=== PATIENT | male | born 1950 | race Caucasian/White ===

== ENCOUNTER → 2021-01-03 10:30 | Outpatient (CLI) | payer MEDICARE, SELFPAY ==
--- NOTE | ~2021-01-03 | CT_ITS ---
EXAMINATION: CT pelvis wo con DATE: 01/03/2021 10:53 INDICATION: Other neuromuscular dysfunction of the bladder for bladder stimulator preimplantation angelia luation TECHNIQUE: High resolution computed tomography (CT) of the pelvis was performed without intravenous c ontrast. Additional sagittal and coronal reconstructions were performed. Automated exposure control a nd iterative reconstruction technique were employed. The dose-length product was 652.85 mGy-cm. COMPARISON: None FINDINGS: 5 mm retrolisthesis L3 on L4 and 4 mm retrolisthesis L4 on L5. Bilateral vertical jenniffer and pedicle scr ew fixation for posterior spinal fusion at L3-L4. Severe disc height loss at L5-S1 with vacuum phenom elizabeth and Modic type III sclerotic endplate changes. Mild to moderate disc height loss at L3-L4 and L4- L5. Severe bilateral facet osteoarthritis at L4-L5 and L5-S1. Intrathecal pain pump in the subcutaneo us fat at the left anterior pelvis with catheter extending into the central canal at the level of L4- L5 with distal tip in the central canal at the level of L3. Mild bilateral hip osteoarthritis. Visualized caudal tips of the right hepatic lobe and bilateral kidneys are normal. Visualized portion of the bowels including the appendix are normal. Bladder is normal. Brachytherapy seeds at the prost ate. No free fluid in the pelvis. Bilateral small fat-containing inguinal hernias. IMPRESSION: 1. Severe lower lumbar spondylosis with L3-L4 posterior spinal fusion and with lower lumbar intrathec al pain pump. Reviewed, dictated and finalized at location A. IMPRESSION: 1. Severe lower lumbar spondylosis with L3-L4 posterior spinal fusion and with lower lumbar intrathecal pain pump.
== END ==
PROVIDERS: Visit Provider Anesthesiology
DX: N31.8 Other neuromuscular dysfunction of bladder (principal); M47.816 Spondylosis without myelopathy or radiculopathy, lumbar region; Z98.1 Arthrodesis status; Z97.8 Presence of other specified devices
CPT/HCPCS: 72192

== ENCOUNTER 2021-08-02 15:21 | Observation (INO) | payer MEDICARE, SELFPAY ==
[2021-08-02] VITALS (31 sets, daily range): BP systolic 119–152; BP diastolic 56–78; PULSE 55–75; RESP 0–21; TEMP 36.4–36.5; O2SAT 92–98; BMI 32.4
--- NOTE | ~2021-08-02 | US_ITS ---
EXAMINATION:US venous doppler LE BI INDICATION:Leg edema TECHNIQUE: Multiple grayscale, color flow and Doppler images of the right and left lower extremity de ep venous systems were obtained and reviewed. COMPARISON:No prior studies for comparison. FINDINGS: The common femoral, superficial femoral and popliteal veins demonstrate normal respiratory variation, augmentation and compressibility. Color flow is also seen within the posterior tibial, pe roneal, greater saphenous and profunda veins. IMPRESSION: 1: No lower extremity deep venous thrombosis. Reviewed, dictated and finalized at location A.
--- NOTE | ~2021-08-02 | XR_ITS ---
XR chest 2V 08/02/2021 16:08 Indication: Midsternal chest pain and shortness of breath Procedure: 2 view chest Comparison: No prior studies for comparison. Findings: Heart size normal. No focal air space disease, pulmonary edema, pleural effusion or suspect ed pneumothorax. There are multiple sclerotic midthoracic vertebra. There are surgical changes consis tent with posterior fusion of the lower thoracic spine, partially visualized. Impression: 1: No acute cardiopulmonary disease. 2: Multiple sclerotic midthoracic vertebra. Metastatic disease not excluded. Correlate for history o f malignancy. Consider correlation with nuclear bone scan. Reviewed, dictated and finalized at location B. Impression: 1: No acute cardiopulmonary disease. 2: Multiple sclerotic midthoracic vertebra. Metastatic disease not excluded. C orrelate for history of malignancy. Consider correlation with nuclear bone scan .
--- NOTE | 2021-08-02 15:24 | ECG_ITS ---
Measurements Intervals [place] Rate: 65 P: 76 FL: 154 QRS: -36 QRSD: 106 T: 32 QT: 412 QTc: 428 Interpretive Statements SINUS RHYTHM WITH OCCASIONAL SUPRAVENTRICULAR PREMATURE COMPLEXES MARKED LEFT AXIS DEVIATION [QRS AXIS < -30] POOR R-WAVE PROGRESSION COMPARED TO ECG 04/05/2019 14:32:04 NO SIGNIFICANT CHANGES Electronically Signed On 08-02-2021 16:22:04 CDT by Rashi Molina M.D.
[2021-08-02 15:54] LABS: Basophils Percent Auto 0.6 % (0.2-1.2); Eosinophils Absolute Auto 0.2 K/mm3 (0-0.3); Eosinophils Percent Auto 3.2 % (0-4.4); Hematocrit 39.3 % (42.0-52.0); Immature Granulocyte Absolute 0.01 K/mm3 (0.00-0.031); Immature Granulocyte Percent A 0.2 % (0-0.5); Lymphocytes Absolute Auto 1.37 K/mm3 (0.9-3.2); Lymphocytes Percent Auto 22.2 % (18.3-44.2); Mean Corpuscular HGB Conc 33.1 g/dl (32-36); Mean Corpuscular Hemoglobin 31.9 pg (26-34); Mean Corpuscular Volume 96.6 fl (80-100); Mean Platelet Volume 8.7 fl (7.4-10.4); Monocytes Absolute Auto 0.5 K/mm3 (0.1-0.6); Monocytes Percent Auto 8.3 % (2.6-8.5); Neutrophils Percent Auto 65.5 % (45.5-73.1); Platelet Count Result 289 k/mm3 (150-375); Red Blood Count 4.07 M/mm3 (4.6-6.20); Red Cell Distribution Width 13.3 % (11.5-14.5); White Blood Count 6.2 K/mm3 (4.5-10.0)
[2021-08-02 16:03] LABS: Prothrombin Time 13.1 Seconds (11.1-14.7)
[2021-08-02] MEDS: ASPIRIN 81 MG CHEWABLE TABLET 324 MG PO (16:55)
[2021-08-02 17:11] LABS: NT Pro B Type Natriuretic Pept 151 pg/mL (5-100)
--- NOTE | 2021-08-02 17:52 | ED.CHESTPAIN ---
HPI - Chest Pain General Chief Complaint: Chest Pain Stated Complaint: CP, SOB Time Seen by Provider: 08/02/21 16:14 History of Present Illness HPI narrative: Patient is a 71-year-old male who presents ER with chest pain. Intermittent over the last 2 weeks. Increasing in frequency. Last about 5 minutes at a time. Central pressure without radiation. No nausea or vomiting. No sweats. Occurs at rest and with movement. Was referred to cardiology. Scheduled for an outpatient EKG/labs/stress test for later in the week but symptoms are worsening. No history of [place]. Related Data Home Medications Medication Instructions Recorded Confirmed Calcium 600 + D(3) 1 cap PO DAILY 04/05/19 07/30/21 amlodipine-benazepril 1 cap PO DAILY 04/05/19 07/30/21 ascorbic acid (vitamin C) 500 mg PO DAILY 04/05/19 07/30/21 duloxetine 60 mg PO DAILY 04/05/19 07/30/21 multivitamin [Daily Multiple] 1 tablet PO DAILY 04/05/19 07/30/21 vitamin B complex [B 1 tablet PO DAILY 04/05/19 07/30/21 Complex-Vitamin B12] doxepin 25 mg capsule 25 mg PO DAILY 07/30/21 07/30/21 docusate sodium 100 mg PO BID 08/02/21 hydrocodone-acetaminophen 1 - 2 tablet PO Q6H PRN 08/02/21 ketoconazole applic TOPICAL 08/02/21 zolpidem 10 mg PO HS 08/02/21 Allergies Allergy/AdvReac Type Severity Reaction Status Date / Time ciprofloxacin Allergy Mild Swelling Verified 04/07/19 08:15 oxycodone Allergy Mild Unknown Verified 07/30/21 09:00 Review of Systems Review of Systems: All systems reviewed & are unremarkable except as noted in HPI and below Constitutional: Constitutional: Denies chills, Denies fever(s) and Denies weakness ENT: Denies nasal congestion and Denies sore throat Cardiovascular: Cardiovascular: Reports chest pain, Denies rapid heart rate and Denies radiating jaw, neck or arm pain Comments: Orthopnea Respiratory: Respiratory: Denies cough, Denies dyspnea and Denies wheezing Gastrointestinal: Gastrointestinal: Denies abdominal pain, Denies nausea and Denies vomiting Musculoskeletal: Musculoskeletal: Reports muscle cramps (Chronic) [facility] Past Medical History Medical History (Updated 08/02/21 @ 19:19 by Home Ramos MD) Anxiety Depression Hypertension Osteoarthritis Presence of intrathecal baclofen pump Surgical History Surgical History (Updated 04/07/19 @ 07:24 by Luis A Watkins DO) History of lumbar fusion Family History Family History Other Cerebrovascular accident Family history of arthritis Family history of malignant neoplasm Social History Social History Smoking status: Former smoker Smoking end date: 11/13/08 Alcohol intake: current Drinks per week: 14 Substance use: never Gender identity (if verbalized by the patient): Male Spiritual care concerns: No Agree to blood products: Yes Exam Narrative: GENERAL: Uncomfortable-appearing, well-nourished, and in no acute distress. HEAD: Normocephalic, atraumatic. ENT: Mucous membranes moist. CHEST: Clear to auscultation. No respiratory distress. HEART: Regular rate and rhythm. Normal peripheral pulses. ABDOMEN: Soft, nontender, nondistended. EXTREMITIES: Normal range of motion. Nonpitting edema. Chronic lower extremity edema. SKIN: Warm, dry, no rash. NEURO: Alert and oriented x3. PSYCH: Normal mood and affect. Course Course Emergency Course: Admit for observation. Chest pain-free at this time. Vital Signs Vital signs: Vital Signs Temperature 97.6 F 08/02/21 15:27 Pulse Rate 69 08/02/21 15:27 Respiratory Rate 16 08/02/21 15:27 Blood Pressure 136/61 08/02/21 15:27 Pulse Oximetry 96 08/02/21 15:27 Temperature 97.6 F 08/02/21 15:27 Pulse Rate 66 08/02/21 17:46 Respiratory Rate 21 H 08/02/21 17:46 Blood Pressure 152/73 H 08/02/21 17:46 Pulse Oximetry 94 08/02/21 17:46 MDM - Chest Pain Lab Data Result diagrams: 08/02/21 15:45
[2021-08-02 18:01] LABS: Alanine Aminotransferase 25 U/L (4-50); Albumin Level 4.2 g/dL (3.5-5.1); Alkaline Phosphatase 77 U/L (38-126); Anion Gap 3 mmol/L (8-16); Aspartate Amino Transferase 48 U/L (17-59); Bilirubin,Total 0.7 mg/dL (0.2-1.3); Blood Urea Nitrogen 19 mg/dL (9-20); Calcium 8.7 mg/dL (8.4-10.2); Carbon Dioxide 29 mmol/L (22-30); Chloride 103 mmol/L (98-107); Estimated CRCL calculation 100 ml/min; Estimated Glomerular Filt Rate > 60; Glucose 112 mg/dL (65-110); Lipase 57 U/L (23-300); Potassium 3.7 mmol/L (3.4-5.0); Sodium 135 mmol/L (137-145)
[2021-08-02 18:10] LABS: Troponin I < 0.012 ng/mL (0.000-0.034)
--- NOTE | 2021-08-02 18:45 | PM.IMHP ---
H&P: HPI History of Present Illness Date/Time: 08/02/21 18:45 Chief Complaint: Chest discomfort. Narrative: This is a very pleasant 71-year-old male with hypertension and benign prostatic hyperplasia presented to the emergency department today from home for evaluation of chest discomfort. A couple of weeks ago he gradually began to notice intermittent midsternal chest discomfort that he describes as a heaviness or pressure-like sensation. It has been self-limiting, typically lasting 1 minute or less before resolving. There is no specific pattern as to when it occurs and he has experienced it both when in the supine position and sitting. He has an incomplete lumbar spinal cord injury and thus he is not necessarily able to exert himself as he is typically in a motorized scooter though he can stand and walk briefly with a walker. It is thus impossible to say whether not this discomfort is occurring with exertion. Associated symptoms include sweats, shortness of breath, and orthopnea. In fact he has been sleeping in a recliner for a couple of weeks due to the symptoms although he has not really been sleeping much due to the symptoms on thus he has been extremely tired throughout the day. He was referred to Dr. Moyer and saw him as an outpatient on 07/30/2021 and an apnea link, echocardiogram, and Lexiscan Myoview stress test were ordered. He completed the apnea link last night and stented in earlier the day. Echocardiogram and stress test are scheduled for sometimes next week. He has never had similar symptoms in the past and he has no known history of cardiac disease. His appetite has been just fine and he denies nausea and vomiting. He has no issues with GERD or indigestion any is not noticed any significant belching or bloating. There is not a reproducible component to his chest discomfort. Review of Systems Review of Systems: Twelve systems were reviewed. No fever. His allergies have been acting up recently and he has had some postnasal drip. No sick contacts. No significant cough. He denies pleuritic pain and palpitations. He does have intermittent lower extremity edema which seems to have been worse recently though he admits that he has been not getting up as much recently as he has had several surgeries in the last couple of months. As mentioned HPI is not been sleeping well due to his symptoms and he also has issues with urinary urgency at nighttime, sometimes getting up every hour. He recently had photoselective vaporization of prostate and his symptoms seem to have improved somewhat. He denies dysuria. No history of venous thromboembolism. The patient has chronic low back pain stemming from history of vertebral fractures and spinal cord injury. He has a baclofen pump in place which was recently worked on. Except as documented, all other systems were reviewed and are negative. [facility] Past Medical History Medical History (Updated 08/02/21 @ 20:46 by Candice Mcdonnell PA-C) Anxiety Benign prostatic hyperplasia Chronic pain syndrome Depression Hypertension Incomplete lesion of lumbar spinal cord Osteoarthritis Surgical History Surgical History (Updated 08/02/21 @ 20:42 by Candice Mcdonnell PA-C) History of cystoscopy With history of Botox injections and Uro lift. History of lumbar fusion L3-L4. History of reverse total replacement of right shoulder joint Complicated by large hematoma and periprosthetic fracture with subsequent hardware removal and subsequent naomy arthroplasty. Presence of intrathecal baclofen pump Family History Family History Other Cerebrovascular accident Family history of arthritis Family history of malignant neoplasm Social History Social History (Updated 08/02/21 @ 20:42 by Candice Mcdonnell PA-C) Social History: Surrogate decision maker: Belen Church, . Code status: Full code. Smoking status: Former smoker Smoking end date: 11/13/08 [facility]
[2021-08-02 19:13] LABS: Troponin I < 0.012 ng/mL (0.000-0.034)
--- NOTE | 2021-08-02 19:31 | PC.NURSE ---
OMAYRA King FOR BACLOFEN 10MG PO ONCE .
[2021-08-02] MEDS: SODIUM CHLORIDE 0.9% IV 1,000 ML 125 ML IV CONT (20:29)
[2021-08-02] MEDS: BACLOFEN 10 MG TABLET PO (20:30)
[2021-08-02] MEDS: HYDROcodone/acetaminophen (*CRX) 5-325 MG TABLET 1 TAB PO (20:50)
[2021-08-02 21:55] LABS: D Dimer 0.68 ug/mL (<0.48)
[2021-08-02 22:04] LABS: Troponin I < 0.012 ng/mL (0.000-0.034)
--- NOTE | 2021-08-02 22:55 | ADMIMU ---
This patient, Macario Church, was admitted to IMU status, and placed in IMU Room 210-01 at 2054. Patient/family oriented to hospital policies and general routines including ID bracelet, bed and alarms, visiting hours, pain management, procedures, bathroom and other care routines, personal items, smoking policy, room service/diet, and visiting hours. Information on how to activate the Rapid Response Team has been discussed. Patient/Family are encouraged to report perceived risks to care and to ask questions if they do not understand what they are told or what they should do.
[2021-08-02] MEDS: DOXEPIN HCL 25 MG CAPSULE PO (23:36)
[2021-08-03] VITALS (7 sets, daily range): BP systolic 139–160; BP diastolic 86–89; PULSE 55–64; RESP 16–18; TEMP 36.6; O2SAT 96–98
[2021-08-03] MEDS: BACLOFEN 10 MG TABLET PO (01:34)
[2021-08-03 05:09] LABS: Hematocrit 37.5 % (42.0-52.0); Hemoglobin 12.2 g/dL (14.0-18.0); Mean Corpuscular HGB Conc 32.5 g/dl (32-36); Mean Corpuscular Hemoglobin 31.9 pg (26-34); Mean Corpuscular Volume 98.2 fl (80-100); Mean Platelet Volume 8.5 fl (7.4-10.4); Platelet Count Result 234 k/mm3 (150-375); Red Blood Count 3.82 M/mm3 (4.6-6.20); Red Cell Distribution Width 13.2 % (11.5-14.5); White Blood Count 4.3 K/mm3 (4.5-10.0)
[2021-08-03 05:21] LABS: Anion Gap 5 mmol/L (8-16); Blood Urea Nitrogen 16 mg/dL (9-20); Calcium 8.2 mg/dL (8.4-10.2); Carbon Dioxide 29 mmol/L (22-30); Chloride 106 mmol/L (98-107); Estimated CRCL calculation 100 ml/min; Estimated Glomerular Filt Rate > 60; Glucose 89 mg/dL (65-110); Magnesium 2.1 mg/dL (1.6-2.3); Potassium 3.6 mmol/L (3.4-5.0); Sodium 140 mmol/L (137-145)
[2021-08-03] MEDS: lisinopriL 20 MG TABLET PO (10:12)
[2021-08-03] MEDS: ASCORBIC ACID 500 MG TABLET PO (10:14)
[2021-08-03] MEDS: DULoxetine HCL 60 MG CAPSULE.DR PO (10:14)
[2021-08-03] MEDS: MULTIVITAMINS THERAPEUTIC TAB (*BKC) 1 TABLET PO (10:15)
[2021-08-03] MEDS: amLODIPine BESYLATE 5 MG TABLET PO (10:15)
[2021-08-03] MEDS: FUROSEMIDE 20 MG TABLET PO (10:15)
[2021-08-03] MEDS: SENNA/DOCUSATE SODIUM TABLET 3 TAB PO (10:15)
[2021-08-03] MEDS: ENOXAPARIN 40 MG/0.4 ML SYRINGE SUB-Q (10:16)
[2021-08-03] MEDS: CYANOCOBALAMIN 1,000 MCG TABLET 1000 MCG PO (10:16)
[2021-08-03] MEDS: MICONAZOLE NITRATE 2% CREAM 30 GM TUBE 1 APPLIC TOPICAL (10:17)
--- NOTE | 2021-08-03 13:45 | PM.DS ---
DS: Admitting Diagnosis Discharge Date 08/03/2021 Admitting Diagnosis ACS rule out DS: Discharge Diagnosis Discharge Diagnosis (1) Chest pain: Code(s): R07.9 - Chest pain, unspecified Status: Acute Assessment and Plan: His story is somewhat unusual for cardiac related chest pain but given ongoing issues he is being admitted overnight for close observation. Pulmonary embolism is a consideration and given his lower extremity edema will obtain venous Dopplers and check a D-dimer. His 1st 2 troponins have been well within normal limits. EKG was personally reviewed and showed a sinus rhythm with occasional ectopy and a left axis deviation. No acute ST segment changes were noted. As mentioned in the HPI he saw Dr. Moyer earlier this week and has a stress test scheduled for next week. Echocardiogram has been ordered (2) Abnormal chest x-ray: Code(s): R93.89 - Abnormal findings on diagnostic imaging of other specified body structures Status: Acute Assessment and Plan: Chest x-ray showed no acute cardiopulmonary disease but noted multiple sclerotic mid thoracic vertebra. He has no history of malignancy; weight has remained stable, to his knowledge he has not had an elevated PSA. Bone scan may be appropriate. (3) Hypertension: Code(s): I10 - Essential (primary) hypertension Status: Acute Assessment and Plan: Blood pressures were reviewed and they are reasonable. Continue antihypertensives and monitor. (4) Benign prostatic hyperplasia: Code(s): N40.0 - Benign prostatic hyperplasia without lower urinary tract symptoms Status: Acute Assessment and Plan: Patient recently had photoselective vaporization of the prostate with improvement in his symptoms. 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 Patient presented to the emergency department with complaints of chest discomfort. He reports that the pain has been going on for a couple of weeks and has progressively became worse with the intermittent episodes of chest pain. He describes the chest pain midsternal chest discomfort that is heaviness or pressure like sensation. It is self-limiting and this typically lasts for 1-5 minutes and resolves independent night without any intervention. Patient denies any specific pattern or exertion when the pain occurs. The patient does report he is unable to lie in a supine position due to shortness of breath he has had an incomplete lumbar spinal cord injury and this is not necessarily able to exert himself. He is typically mobile in a motorized scooter and is unable to stand or walk and his significant other is his primary care provider. Patient has other associated symptoms that include sweats, shortness of breath and/or op orthopnea. Patient has been sleeping in a recliner for the past several weeks due to these symptoms, he has contacted his stores assistant who suggested an echocardiogram and a stress test outpatient. However the patient was unable to wait until 2 weeks prior to the stress test. Therefore he was brought to the emergency department. While in the emergency department labs and imaging were obtained. EKG did not reveal acute ST changes, troponins have been negative and the patient was admitted for further evaluation of acute coronary syndrome. Echocardiogram was ordered for the following morning. Patient denied any acute chest pain during the night or during this hospitalization. Chest x-ray did not reveal acute cardiopulmonary disease. Patient is being discharged to follow-up with his stores assistant. No significant interventions performed during this hospitalization. Echocardiogram reading pending. But will follow up with his stores assistant as an outpatient. Increase his fur
[2021-08-03] MEDS: HYDROcodone/acetaminophen (*CRX) 10-325 MG TABLET 1 TAB PO (14:13)
--- NOTE | 2021-08-03 20:52 | ECHO_ITS ---
Patient Info Name: Macario Church Age: 71 years : 1950 Gender: Male Ht: 70 in Wt: 224 lbs BSA: 2.27 m2 HR: 65 bpm BP: 160 / 89 mmHg Technical Quality: Good Exam Date: 08/03/2021 9:56 AM Exam Location: [facility] Exam Room: [facility] Patient Status: Inpatient Admit Date: 08/02/2021 Staff Ordering Physician: Candice Mcdonnell PA-C Podiatric Aide: Miley Rivera RDCS Attending Provider: Reymundo Muniz MD Referring Physician: Kecia BELLO; Exam Type: CA echo doppler color flow Study Info Indications - chest pain Complete two-dimensional, color flow and Doppler transthoracic echocardiogram is performed. Summary 1. Complete two-dimensional, color flow and Doppler transthoracic echocardiogram is performed. 2. Left ventricular chamber dimension is normal. 3. Left ventricular systolic function is normal, estimated at 65-70%. 4. The left ventricular diastolic function is grade II diastolic dysfunction. 5. E/e' 16 is elevated. 6. Left atrial chamber dimension is mildly enlarged. 7. No pulmonary hypertension, estimated pulmonary arterial systolic pressure is 28 mmHg. Left Ventricle E/e' 16 is elevated. Left ventricular chamber dimension is normal. Left ventricular systolic function is normal, estimated at 65-70%. The left ventricular diastolic function is grade II diastolic dysfunction. Right Ventricle Right ventricular chamber dimension is normal. Right ventricular systolic function is normal. Left Atria Left atrial chamber dimension is mildly enlarged. Right Atria Right atrial chamber dimension is normal. Aortic Valve The aortic valve is trileaflet. There is no aortic valve stenosis. There is no aortic valve regurgitation. Pulmonic Valve There is no pulmonic regurgitation. Mitral Valve There is no mitral valve stenosis. There is no mitral valve regurgitation. Tricuspid Valve There is no tricuspid valve regurgitation. No pulmonary hypertension, estimated pulmonary arterial systolic pressure is 28 mmHg. Pericardium/Pleural There is no pericardial effusion. Inferior Vena Cava Normal inferior vena cava with >50% collapse upon inspiration consistent with normal right atrial pressure, 5 mmHg. Aorta The aortic root size at the sinus of Valsalva is normal. Left Ventricular Outflow Tract Name Value Normal LVOT 2D LVOT Diameter 2.2 cm LVOT Doppler LVOT Peak Gradient 5 mmHg LVOT Mean Gradient 3 mmHg LVOT VTI 23 cm LVOT VTI/AV VTI Ratio 0.9 LVOT Stroke Volume 90 ml LVOT CO 19.0 l/min LVOT CI 8.4 l/min/m2 Pulmonic Valve Name Value Normal PV Doppler PV Peak Gradient 4 mm
== END 2021-08-03 15:50 | disposition home or self-care (01) ==
LOC: ANHED 17:06 → ANHIMU 19:19
PROVIDERS: Emergency Medicine; Physician Assistant; Admitting Provider Family Medicine; Emergency Provider Emergency Medicine; PCP Internal Medicine; Visit Provider Nurse Practitioner Family
DX: R07.9 Chest pain, unspecified (principal); I10 Essential (primary) hypertension; M19.90 Unspecified osteoarthritis, unspecified site; N40.0 Benign prostatic hyperplasia without lower urinary tract symptoms; G89.29 Other chronic pain; R93.89 Abnormal findings on diagnostic imaging of other specified body structures; F32.A Depression, unspecified; F41.9 Anxiety disorder, unspecified; Z96.89 Presence of other specified functional implants; Z87.828 Personal history of other (healed) physical injury and trauma
CPT/HCPCS: 36415; 71046; 80048; 80053; 83690; 83735; 83880; 84443; 84484; 85025; 85027; 85380; 85610; 85730; 93005; 93306; 93970; 96372; 99285; A9270; G0378; J1650; J7030

== ENCOUNTER 2021-08-07 09:09 | Outpatient (CLI) | payer MEDICARE, SELFPAY ==
[2021-08-07 10:00] LABS: Anion Gap 6 mmol/L (8-16); Blood Urea Nitrogen 18 mg/dL (9-20); Calcium 8.8 mg/dL (8.4-10.2); Carbon Dioxide 30 mmol/L (22-30); Chloride 102 mmol/L (98-107); Estimated Glomerular Filt Rate > 60; Glucose 99 mg/dL (65-110); Magnesium 2.1 mg/dL (1.6-2.3); Potassium 3.8 mmol/L (3.4-5.0); Sodium 138 mmol/L (137-145)
== END 2021-08-07 09:10 | disposition home or self-care (01) ==
LOC: ANHLAB 09:11
PROVIDERS: PCP Internal Medicine; Visit Provider Internal Medicine Cardiovascular Disease
DX: E78.5 Hyperlipidemia, unspecified (principal)
CPT/HCPCS: 36415; 80048; 83735

== ENCOUNTER 2021-08-09 09:44 | Outpatient (CLI) | payer MEDICARE, SELFPAY ==
--- NOTE | ~2021-08-09 | NM_ITS ---
EXAMINATION: NM rick stress w perfusion DATE: 08/09/2021 12:02 INDICATION: Chest pain TECHNIQUE: Rest images were obtained following intravenous administration of 9.5 mCi Tc99m tetrofosmi n (Myoview). The patient was infused intravenously with Lexiscan (Regadenoson). Then, 30 mCi Tc99m te trofosmin (Myoview) was administered intravenously, and stress images were obtained. Data was reconst ructed into short axis and horizontal and vertical long axis SPECT images. Gated SPECT images were al so obtained. COMPARISON: None. FINDINGS: There is no definite reversible or fixed perfusion abnormality to suggest ischemia or infar ction. There is normal left ventricular chamber size, wall motion and ejection fraction. Left ventr icular ejection fraction measures >70%. IMPRESSION: 1. Normal myocardial perfusion at rest and during stress. 2. Left ventricular ejection fraction measuring >70%. Reviewed, dictated and finalized at location A.
== END 2021-08-09 09:45 | disposition home or self-care (01) ==
PROVIDERS: PCP Internal Medicine; Visit Provider Internal Medicine Cardiovascular Disease
DX: R07.89 Other chest pain (principal); R06.01 Orthopnea; E78.5 Hyperlipidemia, unspecified
CPT/HCPCS: 78452; A9502; J2785

== ENCOUNTER 2022-06-23 08:45 | Outpatient (CLI) | payer MEDICARE, SELFPAY ==
--- NOTE | ~2022-06-23 | XR_ITS ---
Right Hand Technique: PA, oblique, and lateral views were obtained. Clinical History: Osteoarthritis Findings: No acute fracture seen. There is probable widening of the scapholunate interval and proxima l migration of the capitate.. There is moderate degenerative change at the third DIP joint. Marked do rsal soft tissue swelling of the hand present versus possibly mass lesion.. 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 Consider dedicated wrist evaluatio n to better assess osseous alignment and findings. Marked dorsal soft tissue swelling versus mass lesion in the dorsum of the hand. Correlate clinically and with physical exam. Consider MR for further evaluation for mass lesion as indicated. Moderate degenerative change of the third DIP joint. Reviewed, dictated and finalized at location . 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 Consider ded icated wrist evaluation to better assess osseous alignment and findings. Marked dorsal soft tissue swelling versus mass lesion in the dorsum of the hand . Correlate clinically and with physical exam. Consider MR for further evaluati on for mass lesion as indicated. Moderate degenerative change of the third DIP joint.
--- NOTE | ~2022-06-23 | XR_ITS ---
EXAMINATION: XR wrist RT min 3V INDICATION: Right wrist pain and soft tissue mass TECHNIQUE: Four views of the right wrist are obtained. COMPARISON: None available FINDINGS: No fracture is identified. There is anterior dislocation of the lunate. There is anterior s ubluxation of the scaphoid. There is moderate osteoarthritis of the wrist. A large dorsal soft tissue mass projects over the metacarpals. IMPRESSION: 1. Anterior dislocation of the lunate. 2. Anterior subluxation of the scaphoid. 3. Large dorsal soft tissue mass overlying the metacarpals, possibly fluid collection. Reviewed, dictated and finalized at location B. RUMENT FITTER IMPRESSION: 1. Anterior dislocation of the lunate. 2. Anterior subluxation of the scaphoid. 3. Large dorsal soft tissue mass overlying the metacarpals, possibly fluid eren ection.
--- NOTE | ~2022-06-23 | XR_ITS ---
Left wrist Technique: PA, oblique, lateral, and ulnar deviation views were obtained. Clinical History: Osteoarthritis Findings: There is marked widening of scapholunate interval, with proximal migration of the capitate, which now probably partially articulates with the distal radius. There is probable associated perilu preston dislocation pattern, with the capitate displaced anteriorly relative to the lunate on lateral vi ew. There is moderate osteoarthritic change at the first carpometacarpal joint. There is mild soft ti ssue swelling about the wrist. Probable subchondral cyst or geode present of the distal radius. Impression: Marked widening of the scapholunate interval is consistent with underlying scapholunate ligament tear . 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 Reviewed, dictated and finalized at [facility]. HMOVING PLANT OPERATOR Impression: Marked widening of the scapholunate interval is consistent with underlying scap holunate ligament tear. 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
--- NOTE | ~2022-06-23 | XR_ITS ---
Left Hand Technique: PA, oblique, and lateral views were obtained. Clinical History: Arthritis Findings: No acute fracture seen in the hand. There is widening of the scapholunate interval, with mi ld proximal migration of the capitate. There is mild degenerative change at the left first CMC joint. Remaining joint spaces in the hand are preserved. Soft tissues are unremarkable. Impression: Mild degenerative change at the first CMC joint. 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 Please see further details on sepa rately reported wrist radiographic series. Reviewed, dictated and finalized at location . [employer] Impression: Mild degenerative change at the first CMC joint. 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 Please see morales hudson details on separately reported wrist radiographic series.
== END 2022-06-23 08:46 | disposition home or self-care (01) ==
PROVIDERS: PCP Family Medicine; Visit Provider Plastic Surgery
DX: M19.031 Primary osteoarthritis, right wrist (principal)
CPT/HCPCS: 73110; 73130

== ENCOUNTER 2023-02-13 11:00 | Outpatient (RCR) | payer MEDICARE, SELFPAY ==
--- NOTE | 2022-11-21 12:24 | PTOPEVAL1 ---
Assessment and note entered by Sil Espinosa, PT Evaluation Information Assessment Status Evaluation Diagnosis Oth. specified postprocedural states, low back pain Therapy Diagnosis Oth. abnormalities of gait and mobility Abnormal Posture Weakness Onset 07/11/22 Subjective Information Original accident 16 years ago, this is the 4th fusion. Had 7 fused prior to this fusion. Pt reports is getting around some better from prior to surgery but prior level of function was walking with AD for 4-5 years. Has been able to get down to basement with home health. Reports spasticity in both legs Challenges are getting in and out of a car, walking Dr. Fajardo performed surgery follow up January 2023 Reported Pain Level Pain Score 8: Self Report Assessment PT Clinical Summary Pt presents w/ c/o back pain after surgical fusion of T3-S1 June of this year. However pt main focus with therapy is mobility related. Pt demo's multiple areas of severely decreased strength, decreased flexibility, abnormal postures, decreased mobility, abnormal gait. Currently pt is minimally functional independently and is unsafe with long distances in ambulation. Discussed therapy prognosis, focus, and modifications/DME to assist pt in mobility. Pt will benefit from physical therapy to address deficits and improve function to maintain safe independence. Plan of Care Interventions Gait Training,Manual Therapy,Neuro Re-education, Patient/Caregiver Educati,Therapeutic Activities, Therapeutic Exercise PT Services Indicated Yes Treatment Frequency and 2-3 x weekly x 8 weeks Duration These treatments will address the objective and functional deficits as defined above. The patient will be advanced safely and appropriately in order for the patient to progress towards his/her prior level of function. Additional exercises will be introduced and as well as a comprehensive home exercise program upon discharge, if needed, ?to ensure carryover of functional gains achieved in the clinic. This treatment plan has been reviewed and agreement upon by the patient.
--- NOTE | 2022-11-21 12:26 | OPREHPOC ---
Outpatient Therapy Plan of Care This is a Multidisciplinary Plan of Care that may contain components documented by all disciplines (PT, OT, and ST.) PT Problem 1 PT Problem #1 Knowledge Deficit PT Goal 1 Goal Pt will be independent in HEP Target Visit 12 PT Goal 2 Goal Pt will verbalize understanding of diagnosis and prognosis Target Visit 24 PT Problem 2 PT Problem #2 Pain PT Goal 1 Goal Pt will report lowest pain rating at 4/10 or less Target Visit 12 PT Goal 2 Goal Pt will report highest pain rating at 7/10 or less Target Visit 24 PT Problem 3 PT Problem #3 Impaired Balance PT Goal 1 Goal Pt will demo 5x sit<>stand test at 45 seconds allowing use of UEs and AD Target Visit 12 PT Goal 2 Goal Pt will demo TUG test of 45 seconds with AD and use of UEs Target Visit 24 PT Problem 4 PT Problem #4 Impaired Gait PT Goal 1 Goal Pt will demo ability improved foot clearance bilaterally with ambulation with AD Target Visit 12 PT Goal 2 Goal Pt will demo ability to amb 50 ft with LRAD in 60 seconds Target Visit 24 PT Problem 5 PT Problem #5 Impaired Strength PT Goal 1 Goal Pt will demo 2/5 or greater in tested musculature Target Visit 24
--- NOTE | 2023-01-14 16:03 | PTOPPROG ---
Assessment and note entered by Sil Espinosa, PT Assessment Status Progress Diagnosis Oth. specified postprocedural states, low back pain Therapy conditions Oth. Abnormalities of gait and mobility weakness Onset 07/11/22 Subjective Information Pt states improved ease getting in and out of the car. Reports spasticity in legs at night has lessened. Also states is better able to mofe feet back toward himself without use of UEs but by using the leg muscles themselves. Has attended 3 aquatic sessions and reports day of therapy is wiped out and the next day is tired. Reports he is slower and uses scooter somewhat more but also is not detrimental to his function. states she has noticed him standing up straighter. Assessment PT Clinical Summary Pt has attended land therapy and recently 3 sessions of aquatic therapy consistently. Pt demo' s today greatly improved quality of motion with 5x sit to stand testing as well as increased speed. Was able to perform 2 min walk test without stopping for rest break. Cont to demo significant strength and mobility deficits however does show slow iprovement as is appropriate with neurological cases, especially with present co- morbidities. As pt has yet to plateau in his progress, pt will greatly benefit from continued therapy to continue strengthening, muscle patterning, and balance training in order to improve functional mobility. Plan of Care Interventions Gait Training,Manual Therapy,Neuro Re-education, Patient/Caregiver Educati,Therapeutic Activities, Therapeutic Exercise PT Services Indicated Yes Treatment Frequency and continue 1-2x weekly x 4 weeks Duration These treatments will address the objective and functional deficits as defined above. The patient will be advanced safely and appropriately in order for the patient to progress towards his/her prior level of function. Additional exercises will be introduced and as well as a comprehensive home exercise program upon discharge, if needed, ?to ensure carryover of functional gains achieved in the clinic. This treatment plan has been reviewed and agreement upon by the patient.
== END 2023-02-17 11:46 | disposition still patient (30) ==
LOC: ANHHIPT 11:00
PROVIDERS: PCP Family Medicine; Visit Provider Family Medicine
DX: M54.50 Low back pain, unspecified (principal); Z98.890 Other specified postprocedural states
CPT/HCPCS: 97110; 97112; 97113; 97116; 97140; 97163; 97530; 97750; 97761

== ENCOUNTER 2023-04-13 13:30 | Outpatient (RCR) | payer MEDICARE, SELFPAY ==
--- NOTE | 2023-03-09 16:21 | PTOPPROG ---
Assessment and note entered by Sil Espinosa, PT Assessment Status Progress Diagnosis Oth. specified postprocedural states, low back pain Onset 07/11/22 Subjective Information Pt reports he is still walking outside with upright rollator. Uses upright platform rollators 50% and regular walker 50%, and pt state his wrists are not doing well. states she thinks it is holding onto dorsey during aquatic therapy. Pt reports having greater ease getting into and out of car, but still has difficulty lifting his legs . Pt does report greater ease doffing shoes Pain in back continues to remain the same states she thinks if is his hips that are the problem liting his legs. Pt has not had imaging of hips or otherwise addressed hips in the past. Assessment PT Clinical Summary Pt has grossly maintained gains since last evaluation. Cont to demo abnormal gait patterns but overall improvement noted in quality and energy conservation with activity and less compensatory movements. He does report subjective improvements with greater ease of dressing. Pt has yet to plateau with therapy and would likely diminish in functionality without therapy. Thus therapy is necessary to continue at this time. Plan of Care Interventions Therapeutic Exercise,Patient/Caregiver Educati, Manual Therapy,Neuro Re-education,Therapeutic Activities,Gait Training, aquatic therapy PT Services Indicated Yes Treatment Frequency and 2x weekly x 4 weeks Duration These treatments will address the objective and functional deficits as defined above. The patient will be advanced safely and appropriately in order for the patient to progress towards his/her prior level of function. Additional exercises will be introduced and as well as a comprehensive home exercise program upon discharge, if needed, ?to ensure carryover of functional gains achieved in the clinic. This treatment plan has been reviewed and agreement upon by the patient.
--- NOTE | 2023-04-07 11:09 | PCPTNOTE ---
Pt cancelled today due to illness.
--- NOTE | 2023-04-13 14:28 | PTOPDC ---
Assessment and note entered by Sil Espinosa, PT Assessment Status Discharge Diagnosis Oth. specified postprocedural states, low back pain Onset 07/11/22 Subjective Information Pt reports is getting easier to get into and out of bed, is getting easier even compared to a month ago. Has stabilized in getting into and out of the car. Pt notes shoes and sock continue improving in doffing. Spasticity is doing really well. Doesn't have spasms every night though is random now. Used to be after work outs would have spasms but now is doing better. states does a lot better getting into the shower. Reported Pain Level Pain Score 8: Self Report Assessment PT Clinical Summary Pt has made significant overall progress since initiation of therapy in reported and observed mobility in clinic. Pt demo's last session ability to stand BLEs without UE assist for multiple secondary with occasional center of gravity assist . Pt has made significant progress towards goals and has yet to meet long-term goals. Pt verbalizes concern related to insurance benefits and opts to continue home exercise program independently awaiting the new year. Thus patient is being discharged due to financial concerns.
== END 2023-04-13 14:52 | disposition home or self-care (01) ==
LOC: ANHHIPT 13:30
PROVIDERS: PCP Family Medicine; Visit Provider Family Medicine
DX: M54.50 Low back pain, unspecified (principal); Z98.890 Other specified postprocedural states
CPT/HCPCS: 97110; 97112; 97113; 97116; 97530; 97750

== ENCOUNTER 2023-08-12 10:30 | Outpatient (RCR) | payer MEDICARE, SELFPAY ==
--- NOTE | 2023-05-28 15:57 | PTOPEVAL1 ---
Assessment and note entered by Sil Espinosa, PT Evaluation Information Assessment Status Evaluation Diagnosis T3-S1 fusion Therapy Conditions Gait abnormality, stiffness multiple joints, Oth. Deficits of gait and mobility Onset 07/11/22 Subjective Information Original injury was 16 years ago. was doing therapy in his kitchen, was doing PT for broken leg and leg gave way, fell backwards, and broke vertebra. Did a fusion at that point T10-L1 or 2. Had a spinal cord injury with this. Has a baclofen pump for spasticity of LEs At time of most recent surgery was at [facility] for inpatient rehab, did home health after that [facility], then outpatient therapy including aquatics. Finished this at the end of last year due to insurance and is restarting therapy now to continue improvement. Reports back pain is consistent and continues as it had previously Wants to be able to wokr out at [facility] but has not been able to make time over the holidays, and his does not want him driving by himself. Also reports he has not been performing his home exercise program. Reports prior to the cold weather was walking his driveway one daily with upright rollator for exercise however. Reports has canes with large base and forearm support and feels very comfortable in these. But uses upright rollator in home to use for carrying items. Also has significant difficulty with legs stiffening up when sitting for an hour or more. At Dentist office today laying back in chair, rolled off the chair onto hands and knees and use the hi-low of the chair to get up. If lays flat on the floor without shoes on is completely unable to get up from floor without assist. With shoes and socks is able to get up using the friction of the shoes to assist Continues to have swelling in BLEs, is taking 2 water pills and 2 blood pressure pills even with compression. Attempted to educate patient on leg length
--- NOTE | 2023-05-28 16:01 | OPREHPOC ---
Outpatient Therapy Plan of Care This is a Multidisciplinary Plan of Care that may contain components documented by all disciplines (PT, OT, and ST.) PT Problem 1 PT Problem #1 Knowledge Deficit PT Goal 1 Goal Pt will be independent in HEP Pt will verbalize understanding of diagnosis and prognosis Target Visit 8 PT Problem 2 PT Problem #2 Impaired Gait PT Goal 1 Goal Pt will demo ability to ambulate with upright rollation x 50 feet without toe drag with or without other assistive devices Target Visit 8 PT Goal 2 Goal Pt will demo increased step length bilaterally to improve ambulation distance efficiently Target Visit 16 PT Problem 3 PT Problem #3 Impaired Flexibility PT Goal 1 Goal Patient will demo right hamstring flexibility of 30 degrees or more from 90/90 position Target Visit 8 PT Goal 2 Goal Pt will demo improved hip flexor flexibility to allow hip extension in gait cycle Target Visit 16 PT Problem 4 PT Problem #4 Impaired Range of Motion PT Goal 1 Goal Pt will demo hip flexion of 120 or greater passively in order to allow improved forward lean for sit<>stand kinematics. Target Visit 16
--- NOTE | 2023-06-03 11:25 | PCPTNOTE ---
Patient called & rescheduled appointment this date due to inclimate weather.
--- NOTE | 2023-07-24 19:53 | PTOPPROG ---
Assessment and note entered by Sil Espinosa, PT Assessment Status Progress Report Diagnosis T3-S1 fusion Therapy conditions Gait abnormality, stiffness multiple joints, Oth. deficits of gait and mobility Onset 07/11/22 Subjective Information Pt states earlier this week went to have labs and found some elevated counts, not quite a UTI but was provided anti-biotics. [place] better after this. Continues to have difficulty getting back to normal after this. Reports is very fatigued for days after therapy. states he is having more difficulty with sit to stands recently. Pt states is doing his stretches daily, soreness in hips has resolved. Reports feeling he has hit a plateau in his progress. Pt's states she is sad pt can't bend his knees and lift his legs for ambulation Assessment PT Clinical Summary Pt has attended therapy with moderate consistency this round of therapy. Has had multiple illnesses since beginning of the year. Observations over the last few visits show minimal to no improvement in gait and mobility compared prior sessions. Pt is using less restrictive AD, however cost/benefit of energy expenditure and progression towards goals is less than satisfactory. Significant time spent today educating patient and apparent plateau in progress, factors in this such as illnesses, and shifting focus from strengthening and progression towards average walking patterns to modifying pt settings to allow improved functional mobility and improved independence though this may be different than patient has in the past. Discussed continued exercise with walking in water and routine fitness activities versus more appropriate energy expenditures for improved quality of life. Pt will benefit from cont therapy to educate he and his in modifications, resources, and abilities as well as continued independent progression/maintenance over time. Plan of Care Interventions Aquatic Therapy,Manual Therapy,Neuro Re-education, Patient/Caregiver Educati,Therapeutic Activities, Therapeutic Exercise,Self-Care/Home Management PT Services Indicated Yes Treatment Frequency and 1x weekly x 6 visits Duration These treatments will address the objective and functional deficits as defined above. The patient will be advanced safely and appropriately in order for the patient to progress towards hi
--- NOTE | 2023-08-19 12:40 | PCPTNOTE ---
Patient called & cancelled scheduled appointment this date due to illness
== END 2023-08-25 23:59 | disposition home or self-care (01) ==
LOC: ANHHIPT 10:30
PROVIDERS: PCP Family Medicine; Visit Provider Physician Assistant Medical
DX: M96.1 Postlaminectomy syndrome, not elsewhere classified (principal); R26.9 Unspecified abnormalities of gait and mobility
CPT/HCPCS: 97110; 97112; 97116; 97140; 97163; 97530; 97750

== ENCOUNTER 2023-09-02 11:52 | Outpatient (RCR) | payer MEDICARE, SELFPAY ==
--- NOTE | 2023-09-02 18:37 | PTOPDC ---
Assessment and note entered by Sil Espinosa, PT Assessment Status Discharge Diagnosis T3-S1 fusion, weakness, oth. abnormalities of gait and mobility Onset 07/11/22 Subjective Information Pt reports went to ER with UTI recently. Had blood test and urine test, was given anti-biotics and sent home. Finished these a week ago. Last week went to [place] and was a [address] to get there and 4 hours to get back. Sitting in the car for 8 hours, legs didn't want to move . 3 days later finally got legs to move and went outside and did things. [facility] but has been [facility] and unable to take him. She wants him to go to the rec center but can't/won't take him and he cannot drive himself. Went for an hour ride Thursday this week and couldn't get out of car due to tight muscles after sitting with legs straight for an hour. has history of about 4 UTIs in 4 months, anti- biotics 10 days each. Still having insomnia, was up at 3 am, 4 am, and 5 am. Reports therapy has slacked off , that sessions have only been once weekly and only stretching, not pushing him. States he also hasn't been doing his exercises and that's my fault Has a cruise scheduled in one month. has a 13 hour flight is going compression socks and try to get up as often as possible. States will be up to the energy manager if is going to be able to go on cruise. Assessment PT Clinical Summary Pt has had recurrent UTI's since the beginning of this year. End of last year after many months of therapy pt had demonstrated significant gains in standing and balance. Had one instance this year of upright posture with appropriate amilcar knee extension. Reports has not been able to continue his exercises due to illnesses. Overall patient mobility and progression appears to have ceased and at times demo's regression. Pt has been educated on appropriate mat mobility, sitting postures to improve sitting balance, exercises to improve joint mobility allowing improved rocking,
== END 2023-09-03 15:55 | disposition home or self-care (01) ==
LOC: ANHHIPT 11:52
PROVIDERS: PCP Nurse Practitioner Family; Visit Provider Physician Assistant Medical
DX: M96.1 Postlaminectomy syndrome, not elsewhere classified (principal); R26.9 Unspecified abnormalities of gait and mobility
CPT/HCPCS: 97530; 97750

== ENCOUNTER 2023-12-23 10:15 | Outpatient (RCR) | payer MEDICARE, SELFPAY ==
--- NOTE | 2023-10-08 15:48 | PTOPEVAL1 ---
Assessment and note entered by Rachel De La Fuente, PT Evaluation Information Assessment Status Evaluation Diagnosis R26.9, G82.20, Z98.890 Onset 08/31/2023 Therapy Conditions weakness, balance deficits, gait impairments Subjective Information Pt. 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 States has received therapy in the past and was doing better, however, since May of this year, he progressively got worse. Diagnosed with UTI approx. a month ago, has gone through bouts of ABT treatment and since then he has noticed increased difficulty with moving around at home, increased difficulty with getting up steps to the house and getting in and out of the car. Pt also states requiring increased assistance with getting on and off the scooter. Reported Pain Level Pain Score 6: Self Report Assessment PT Clinical Summary Pt presents to therapy with multiple comorbidities of h/o SCI with paraplegia, arthritic pain to B shoulders and wrists; MAZARIEGOS during transfers and positional changes, muscle imbalance and increased tightness to B hip flexors and adductors. generalized weakness, postural deficits and significant gait impairments impacting independence and safety with performing functional mobility. Skilled PT necessary to improve quality of life. Referral to OT indicated to improve indep self-care and ADLs and for proper use of DMEs. Plan of Care Interventions Check Out for Orthotic/Pr,Electrical Stimulation, Gait Training,Hot Pack/Cold Pack,Intermittent Compression,Manual Therapy,Neuro Re-education, Patient/Caregiver Education,Prosthetic Training, Therapeutic Activities,Therapeutic Exercise, Wheelchair Training PT Services Indicated Yes Treatment Frequency and 2x/wk x 12 visits Duration These treatments will address the objective and functional deficits as defined above. The patient will be advanced safely and appropriately in order for the patient to progress towards his/her prior level of function. Additional exercises will be introduced and as well as a comprehensive home exercise program upon discharge, if needed, ?to ensure carryover of functional gains achieved in the clinic. This treatment plan has been reviewed and agreement upon by the patient.
--- NOTE | 2023-11-09 10:54 | OTOPEVDC ---
Assessment and note entered by Paul Guajardo, JEWEL/Faiza, CHT Evaluation Information & Discharge Summary 11/09/23 Diagnosis Pain in bilateral wrists, ADL decline Subjective Information Patient reporting a functional decline in ADL skills in May after being hospitalized for a UTI. Past medical history includes SCI with T3-S1 fusion Jun 2022. (R) shoulder replacement with complications, 6 weeks post op the humeral head came loose from the GH joint, which required 2 revisions. Bilateral wrist arthritis, which is exacerbated by walker use, pushing up from a chair during transfers, etc. He comes in today with adaptive equipment he uses for ADLs to practice and see if there are any new techniques for him to try. Currently his helps him with dressing. He states he can undress himself, transfer himself into the shower, and bathe with stand-by assist provided by his . She typically helps him with donning lower body clothes. They have a walk-in shower with an 8 in lip to step over. He does have a seat, hand held shower head, and suction grab bars in the shower. Assessment OT Clinical Summary Patient referred to OT with bilateral wrist pain and functional ADL decline. OT evaluation completed today. Practiced dressing skills with adaptive equipment. Provided adaptive equipment modifications and education on adaptive techniques . He demonstrates excellent understanding of all education and practice today. Provided gentle wrist and jinrikisha driver strengthening HEP for patient to complete daily, within his pain tolerance, to improve functional stability of the wrist joints, which are severely arthritic. Discussed adaptive ways to use the UEs during transfers to avoid constant pressure through his painful wrists. After our session today the patient feels as though he will be able to work on these items independently at home. Therapist is in agreement. No further skilled OT indicated at this time. D/C today with patient independent with instructed materials. Plan of Care OT Services Indicated No - D/C with HEP
--- NOTE | 2023-12-09 13:56 | PCPTNOTE ---
Called and cancelled. BARRYS
--- NOTE | 2023-12-10 15:45 | PTOPEVAL1 ---
Assessment and note entered by Rachel De La Fuente, PT Re-Eval Information Assessment Status Progress Diagnosis R26.9, G82.20, Z98.890 Onset 08/31/2023 Subjective Information Pt reports he is moving better and continue to go to the local rec center to walk in the pool. continue to assist as needed. Assessment PT Clinical Summary Pt demos gains in strength and flexibility to BLEs allowing improved bed mobility and dynamic sitting balance and tolerance. However, pt continues to have deficits in gait and posture impacting his risk for falls. Presents with narrowed BOBO and decreased weight bearing to BLEs during ambulation which results to increased weight bearing thru B wrists which is severely deformed at this time. Lengthy discussion regarding options of a power wheelchair to improve safety with functional mobility, utilizing appropriate orthosis for BLEs to improve safety with standing tasks to which the patient appears currently resistant to accepting. Both patient and his are however agreeable to continued skilled PT this time to gear the focus towards a new goal of utilizing e-stim to target hip abductors and controlled BLE mobility. Plan of Care Interventions Check Out for Orthotic/Pr,Electrical Stimulation, Gait Training,Intermittent Compression,Manual Therapy,Mechanical Traction,Neuro Re-education, Patient/Caregiver Educati,Therapeutic Activities, Therapeutic Exercise PT Services Indicated Yes Treatment Frequency and 2x/wk x 6 visits Duration These treatments will address the objective and functional deficits as defined above. The patient will be advanced safely and appropriately in order for the patient to progress towards his/her prior level of function. Additional exercises will be introduced and as well as a comprehensive home exercise program upon discharge, if needed, ?to ensure carryover of functional gains achieved in the clinic. This treatment plan has been reviewed and agreement upon by the patient.
== END 2024-01-06 23:59 | disposition home or self-care (01) ==
LOC: ANHHIPT 10:15
PROVIDERS: PCP Nurse Practitioner Family; Visit Provider Physician Assistant Medical
DX: R26.9 Unspecified abnormalities of gait and mobility (principal); G82.20 Paraplegia, unspecified; Z98.890 Other specified postprocedural states
CPT/HCPCS: 97014; 97110; 97112; 97116; 97140; 97161; 97165; 97530; 97535; 97750; G0283

== ENCOUNTER 2024-01-21 09:42 | Outpatient (RCR) | payer MEDICARE, SELFPAY | END 2024-02-12 13:08 | disposition home or self-care (01) | LOC: ANHHIPT 09:42 | PROVIDERS: PCP Physician Assistant Medical; Visit Provider Physician Assistant Medical | DX: G82.20 Paraplegia, unspecified (principal); R26.9 Unspecified abnormalities of gait and mobility | CPT/HCPCS: 97163 ==

== ENCOUNTER 2024-10-13 10:30 | Outpatient (CLI) | payer MEDICARE, SELFPAY ==
--- OUTSIDE RECORDS SUMMARY | 2024-10-13 10:41 | XMS_ITS | Clinical Summary ---
Author Organization [facility] Address [address] [place] [address] Phone Care Team Providers Care Drier Attendant Name Role Phone Barrington Casillas MD Primary Care Provider [phone] Allergies Active Allergy Reactions Criticality Noted Date Comments Ciprofloxacin Rash Low 06/07/2021 Oxycodone Other (See Comments) High 06/07/2021 Legs became paralyzed Medications DULoxetine (CYMBALTA) 60 mg Capsule, Delayed Release(E.C.) Take 60 mg by mouth daily. Active loratadine (CLARITIN) 10 mg Oral tablet Take 10 mg by mouth 1 time daily as needed. Summer only Active baclofen (LIORESAL) 10 mg Oral tablet Take 10 mg by mouth daily at bedtime . 01/17/2011 Active diazepam (VALIUM) 5 mg Oral tablet Take 5 mg by mouth daily at bedtime . 01/17/2011 Active multivitamin (DAILY-MARIALUISA) Oral tablet Take 1 Tab by mouth daily. Active calcium carbonate (CALTRATE) 600 mg (1,500 mg) Oral Tab Take 1 mg by mouth daily. 01/17/2011 Active chlorthalidone (HYGROTON) 50 mg tablet Take 40 mg by mouth daily. Active amLODIPine-lilian zepril (LOTREL) 5-20 mg capsule Take 1 Capsule by mouth daily. Active CALCIUM CARBONATE/VITAM IN D3 (CALCIUM 500 + D, D3, ORAL) Take by mouth. Active sennosides (SENOKOT) 8.6 mg tablet Take 8.6 mg by mouth daily at bedtime. Active MAGNESIUM OXIDE (GONZALEZ ORAL) Take by mouth daily at bedtime. Active melatonin 5 mg Tablet Take 10 mg by mouth nightly as needed. Active HYDROcodone-stephanie taminophen (NORCO) 10-325 mg Tablet Take 10 mg by mouth. 10-325mg of hydrocodone-a cetaminophen 1-2 tablets daily Active zolpidem (AMBIEN) 5 mg tablet Take 5 mg by mouth nightly as needed for Insomnia. Active mupirocin (BACTROBAN) 2 % Ointment Apply to affected area daily. 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, sequela 06/12/2021 Immunizations Immunization Administration Dates Next Due (SPIKEVAX) (12 YRS UP PRIMAR Y SERIES) COVID-19 VACCINE - MRNA-1273(PF) 100 MCG/0.5 ML IM SUSP 03/27/2021 Social History Tobacco Use Types Packs/Day Years Used Date Smoking Tobacco: Former Cigarettes Q uit: 11/07/2006 Smokeless Tobacco: Never Alcohol Use Standard Drinks/Week Comments Yes 14 (1 standard drink = 0.6 oz pu re alcohol) Sex and Gender Information Value Date Recorded Sex Assigned at Not on file Legal Sex Male 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 Gender Identity Not on file Sexual Orientation Not on file Last Filed Vital Signs Vital Sign Reading Time Taken Comments Blood Pressure 121/57 06/12/2021 7:39 AM OFFSET MACHINE OPERATOR Pulse 64 06/12/2021 7:39 AM OFFSET MACHINE OPERATOR Temperature 36.9 C (98.4 F) 06/12/2021 7:39 AM OFFSET MACHINE OPERATOR Respiratory Rate 18 06/12/2021 7:39 AM OFFSET MACHINE OPERATOR Oxygen Saturation 92% 06/12/2021 7:39 AM OFFSET MACHINE OPERATOR Inhaled Oxygen Concentration - - Weight 102.5 kg (225 lb 14.4 oz) 2021 10:47 AM OFFSET MACHINE OPERATOR Height 177.8 cm (5' 10) 06/11/2021 10: 47 AM OFFSET MACHINE OPERATOR Body Mass Index 32.41 06/11/2021 10:47 AM OFFSET MACHINE OPERATOR Plan of Treatment Health Maintenance Due Date Last Done Comments DTAP/TDAP/TD VACCINES (1 - Tdap) 1969 COLORECTAL SCREENING 1995 Colorectal Cancer Screening 1995 FIT-DNA Q 3 years 1995 FIT/FOBT Q 1 year 1995 Flex Sig/CT Colonography Q 5 years 1995 PNEUMOCOCCAL VACCINE 50+ YEA RS (1 of 1 - PCV) 2000 INFLUENZA VACCINE (#1) 2023 03/15/2020 COVID-19 Vaccine (4 - 2023- season) 2024 03/27/2021, 07/13/2020, 06/15/2020 RSV VACCINE (60+ or ) (1 - 1-dose 75+ series) 2025 ZOSTER VACCINE Completed 11/14/2019, 06/08/2019 Medical Devices Implanted Type Area Mattress Renovator Device Identifier Shelf Expiration Date Model / Serial / Lot Pump Synchromed Ii 40ml 8637-40 - [id number] Implanted:Qty: 1 on 01/21/2011 at [facility] Catheter Left: Abdomen [employer]- NEUROLOGIC TECH 05/23/2012 8637-40 / [id number] / Cath It Ascenda 114.3cm 8780 - [id number] Implanted:Qty: 1 on 06/11/2021 by George Jorge DO at [facility] Catheter Left: Back [employer]- NEUROLOGIC TECH 12/20/2022 8780 / / [id number] Description:Requisition # [id number]. Pump Synchromed Ii 40ml 8637-40 - [id number] Implanted:Qty: 1 on 07/21/2017 by George Jorge DO at [facility] Other Right: Abdomen [employer]- NEUROLOGIC TECH 04/22/2019 8637-40 / / [id number] Description:Both Medtronic c omponents are processed on requisition, [id number]. Connector Pump Sutureless 8578 - [id number] Implanted:Qty: 1 on 07/21/2017 by George Jorge DO at [facility] Other Right: Abdomen [employer]- NEUROLOGIC TECH 04/22/2019 8578 / / [id number] Explanted Type Area Mattress Renovator Device Identifier Shelf Expiration Date Model / Serial / Lot Cath Indura [id number] Implanted:Qty: 1 on 01/21/2011 at [facility] Explanted:Qty: 1 on 07/21/2017 at [facility] Catheter Right: Back [employer]- NEUROSURGERY 11/20/2012 8709 / / [id number] Baclofen Pump Catheter Explanted:Qty: 1 on 06/11/2021 at [facility] Left: Back Insurance MEDICARE PART A AND B Advance Directives For more information, please contact: [phone] * Full Code (Latest Code Status on File) Date Activated Date Inactivated Comments 06/11/2021 3:58 PM 06/12/2021 10:38 AM * Full Code Date Activated Date Inactivated Comments 06/11/2021 10:42 AM 06/11/2021 3:58 PM * Full Code Date Activated Date Inactivated Comments 07/21/2017 6:34 PM 07/22/2017 11:23 AM * Full Code Date Activated Date Inactivated Comments 07/21/2017 2:43 PM 07/21/2017 6:34 PM * Full Code Date Activated Date Inactivated Comments 07/21/2017 1:49 PM 07/21/2017 2:43 PM Care Teams Drier Attendant Relationship Specialty Start Date End Date Barrington Casillas MD [address] [place] [id number] PCP - General Internal Medicine 07/14/17
--- OUTSIDE RECORDS SUMMARY | 2024-10-13 10:41 | XMS_ITS | Patient Health Record ---
Author Organization [facility] Address [address] [place] [address] Care Team Providers Care Senior Php Developer Name Role Phone George Jorge Unavailable [phone] ALLERGIES Allergen (clinical drug ingredient) Drug/Non Drug Allergy documented on EMR Reaction Allergy Type Onset Date Status ciprofloxacin Cipro Unknown Drug Allergy Act luan oxycodone Oxycodone Unknown Drug Allergy Active REASON FOR REFERRAL No Information MEDICATIONS Medication SIG (Take, Route, Frequency, Duration) Notes Start Date End Date Status Ibuprofen 200 MG 1 tablet with food o r milk as needed Orally Three times a day Active Senna S 8.6-50 MG 1 tablet in the even ing as needed Orally Once a day Active Calcium + D3 600-800 MG-UNIT 1 tablet with a meal Orally Once a day Active Vitamin C 500 MG 1 tablet Orally Once a day Active Baclofen 10 MG 1 tablet as needed O rally Twice a day Active amLODIPine Besy-Benazepril HCl 5-20 MG as directed Orally Active Melatonin 10 MG as directed Orally Active Multivitamin - 1 tablet Orally Once a day Active Jeqagsdctvi-SRUB-Vjsuyxk Prod Active Mupirocin 2 % 1 application Athletic Team Physician ally Daily for surgical dressing changes midline low back and left abdomen for 12 days 06/13/2021 Active Meloxicam Active DULoxetine HCl 60 MG 1 capsule Orally On ce a day Active Montelukast Sodium 10 MG 1 tablet Orally Once a day Active Loratadine 10 MG 1 tablet Orally Once a day Active Cefadroxil 500 MG 1 capsule Orally merlene ry 12 hrs for 10 day(s) 06/13/2021 Active diazePAM 5 MG 1 tablet as needed O rally Once a day Active SOCIAL HISTORY Tobacco Use: Social History Observation Description Date Details (start date - stop date) Never Smoker NA - NA Sex Assigned At : Social History Observation Description Sex Assigned At Unknown Tobacco Use/Smoking Question Answer Notes Are you a nonsmoker PROBLEMS Problem Type ICD Code Onset Dates Problem Status W/U Status Risk SNOMED Code Notes Problem Unspecified injury at T11-T12 level of thoracic spinal cord, sequela (S24.104S) Active confirmed 98027007 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) Active confirmed 603540122 PLAN OF TREATMENT No Information Insurance Providers Payer Name Payer Address Payer Phone Subscriber Number Group Number Insured Name Patient Relationship to Insured Coverage Start Date Coverage End Date MEDICARE SERVICES [address] [address] [place], [place] [id number] [phone] [id number] null, null Self - patient is the insured MEDICATIONS ADMINISTERED Medication Instructions Date of Administration Dosage Notes Pump Side-Port Access with Fluoroscopy 05/22/2021 MEDICAL (GENERAL) HISTORY Medical History History ICD Code High blood pressure prostate problems urinary incontinence Surgical History Surgery Date(Month/Year) broken left leg 04/2006 Broken back 07/2006 baclofen Pump, catheter installed back surgery 02/2009 pump, catheter installed 02/2011 Corporal Tunnel Surgery both wrists 04/18 012 spinal stenosis surgery 09/2016 pump replacement 07/2017 reverse shoulder replacement 08/2020 shoulder 01/2021
--- NOTE | 2024-10-13 11:30 | ECG_ITS ---
Test Date: 2024-10-13 11:01:34 Measurements Intervals [place] Rate: 60 P: 1 UT: 147 QRS: -28 QRSD: 101 T: -3 QT: 422 QTc: 424 Interpretive Statements SINUS RHYTHM BORDERLINE LEFT AXIS DEVIATION [QRS AXIS < -20] No previous ECG available for comparison Electronically Signed On 10-14-2024 11:02:50 CDT by Lew Villarreal M.D.
[2024-10-13 11:35] LABS: Anion Gap 9 mmol/L (4-12); Blood Urea Nitrogen 21 mg/dL (9-20); Calcium 8.8 mg/dL (8.4-10.2); Carbon Dioxide 27 mmol/L (22-30); Chloride 97 mmol/L (98-107); Estimated Glomerular Filt Rate > 60; Glucose 90 mg/dL (65-110); Potassium 4.1 mmol/L (3.4-5.0); Sodium 133 mmol/L (137-145)
== END 2024-10-13 10:31 | disposition home or self-care (01) ==
LOC: ANHSURGERY 10:39
PROVIDERS: Anesthesiology; PCP Physician Assistant Medical; Visit Provider Urology
DX: Z01.818 Encounter for other preprocedural examination (principal); N43.3 Hydrocele, unspecified; I10 Essential (primary) hypertension
CPT/HCPCS: 36415; 80048; 87086; 93005

== ENCOUNTER 2024-10-19 00:12 | Day surgery (SDC) | payer MEDICARE, SELFPAY ==
--- NOTE | 2024-10-06 12:48 | PC.NURSE ---
Report to the Outpatient Waiting Room, entrance under the green pavilion located off [facility], at time ___7 am____ on date _10/19/24 . Planned Procedure Time: __9 am .? Time changes happen often and if your time is changed the preop area will call you the afternoon before. - You and your visitor will be asked to self-screen and do not enter if you have any COVID symptoms. Please call surgeon if you need to reschedule. - A mask is optional within the hospital at this time. Patients may have clear liquids (water, carbonated beverages, clear teas, apple juice) until 3 hours prior to surgery ( 6am ) with a maximum of 20 ounces. - No food from midnight until time of surgery and no smoking, or chewing tobacco (or any form of nicotine). No chewing gum, candy or mints. - Take only the following medications with a SIP of water on the morning of surgery: _duloxetine,gabapentin,metoprolol, hydrocodone if needed for pain DO NOT STOP ANY OF YOUR OTHER PRESCRIPTION MEDICATIONS PRIOR TO SURGERY EXCEPT THE FOLLOWING Hold all vitamins and supplements for 3 days per anesthesiologist.last dose 10/15/24 Medications to discontinue per physician __zepbound hold 10 days per anesthesia last dose 10/03/[address] peterson Please no make-up, nail amharic, hairspray, perfume, deodorant, or body powder the day of surgery.? No jewelry (including any body piercings) or valuables the day of surgery, leave them at home.? Please take a shower or bath the night before, or the morning of, surgery with an antibacterial soap.? Wear comfortable, loose fitting clothing.? Children are encouraged to wear pajamas. - Jewelry must be removed prior to entering the operating room.? Rings and piercings that are not removed may be cut off. - The hospital will not accept responsibility for valuables.? - Please leave all valuables, including medications, at home the day of surgery. If you are going home after surgery, a licensed food service driver must drive you home.? - NO public transportation without another adult if you receive anesthesia. - We recommend that an adult stay with you for 24 hours following discharge. - We also recommend that you do not drive, make important decision, drink alcoholic beverages, or take any drugs that were not prescribed by your health care provider for at least 24 hours after your discharge time. Follow any additional instructions given to you from your surgeon. Telephone instructions given to __patient and asked if any additional questions and then verbalized understanding. Patient advised to call surgeon office or pre surgery nurse liaison [phone] if any additional questions.
[2024-10-06 13:17] VITALS: BMI 35.7
[2024-10-19] VITALS (9 sets, daily range): BP systolic 122–139; BP diastolic 64–82; PULSE 59–69; RESP 13–18; TEMP 36.7–37; O2SAT 95–100; BMI 37.5
--- OUTSIDE RECORDS SUMMARY | 2024-10-19 00:16 | XMS_ITS | Clinical Summary ---
Author Organization [facility] Address [address] [place] [address] Care Team Providers Care Fight Manager Name Role Phone Rich Hoffman MD Primary Care Provider [phone] Leonie Mayers MD Unavailable [phone] Allergies Active Allergy Reactions Criticality Noted Date Comments Ciprofloxacin Itching,Rash Medium 07/08/2019 Oxycodone Other (See comments) Low 06/05/2021 paralysis of lower extremities Medications calcium carbonate-vitamin D3 1,250mg (500mg elemental) - 200 units per tabletIndications :Prevention of Vitamin D Deficiency Take 1 tablet by mouth every morning Active DULoxetine DR (CYMBALTA) 60 mg capsuleIndication s:Anxiety with Depression Take 1 capsule (60 mg total) by mouth every morning 7 Active senna (SENOKOT) 8.6 mg tabletIndications :constipation Take 2 tablets by mouth 2 (two) times a day Active MULTIVITAMIN ORALIndications:V itamin Deficiency Prevention Take 1 tablet by mouth every morning Active furosemide (LASIX) 40 mg tabletIndications :Edema Take 1 tablet (40 mg total) by mouth every morning 1 Active ascorbic acid (VITAMIN C) 500 mg tablet,chewableIn dications:immune support Take 1 tablet/chew tab (500 mg total) by mouth every morning Active cyanocobalamin (Vitamin B-12) 500 mcg tabletIndications :Prevention of Vitamin B12 Deficiency Take 1 tablet (500 mcg total) by mouth every morning Active gabapentin (NEURONTIN) 300 mg capsule Take 1 capsule (300 mg total) by mouth 3 (three) times a day 90 capsule 11 3 Active loratadine (CLARITIN) 10 mg tabletIndications :Allergic Rhinitis Take 1 tablet (10 mg total) by mouth every morning Active meloxicam (MOBIC) 15 mg tabletIndications :Osteoarthritis Take 1 tablet (15 mg total) by mouth every morning 4 Active latanoprost (XALATAN) 0.005 % ophthalmic solutionIndicatio ns:ocular hypertension Administer 1 drop into both eyes nightly 4 Active Gemtesa 75 mg tabletIndications :Urinary Urgency Take 75 mg by mouth every morning 4 Active potassium chloride ER 20 mEq CR tablet Take 1 tablet (20 mEq total) by mouth every morning Active montelukast (SINGULAIR) 10 mg tablet Take 1 tablet (10 mg total) by mouth daily 4 Active QUEtiapine (SEROquel) 100 mg tablet Take 1 tablet (100 mg total) by mouth nightly at bedtime. 4 Active HYDROcodone-aceta minophen (NORCO) 5-325 mg per tabletIndications :Pain Take 1 tablet by mouth every 6 (six) hours as needed for pain 28 tablet 4 Active L. acidophilus/Bifid . animalis 32 billion cell capsule Take 1 capsule by mouth daily Active zinc oxide 20 % ointment Apply topically as needed 5 Active Zepbound 2.5 mg/0.5 mL pen injector INJECT 2.5 MG INTO THE SKIN ONCE A WEEK. INDICATIONS: WEIGHT LOSS DOSE WILL INCREASE AFTER 30 DAYS Active spironolactone (ALDACTONE) 25 mg tablet Take 2 tablets (50 mg total) by mouth daily Active Hospital, Clinic, or Other Facility Administered Medication Ordered Dose Route Frequency Start Date End Date Status tamsulosin (FLOMAX) extended release capsule 0.4 mgIndications:Uns pecified injury at t11-T12 level of thoracic spinal cord, sequela,Urgency of urination 0.4 mg oral Daily with dinner 09/30/2023 Active baclofen (GABLOFEN) 40,000 mcg/20mL (2,000 mcg/mL) intrathecal 80,000 mcgIndications:Pr esence of intrathecal baclofen pump 29699 mcg intrathec Continuous 11/23/2024 Active baclofen (GABLOFEN) 40,000 mcg/20mL (2,000 mcg/mL) intrathecal 80,000 mcgIndications:Pr esence of intrathecal baclofen pump 08957 mcg intrathec Continuous 07/13/2024 10/12/19 25 Discontinued Active Problems Problem Noted Date Diagnosed Date Muscle spasticity 09/30/2023 Acquired spastic diplegia of lower extremities 0 08/05/2023 UTI (urinary tract infection) 06/04/2023 Abnormal gait 07/29/2022 09/03/2022 Unspecified injury at t11-T1 2 level of thoracic spinal cord, sequela 07/29/2022 09/03/2022 Pain in thoracic spine 07/24/2022 Anxiety disorder, unspecified 07/18/2022 Chronic diastolic (congestive) heart failure 07/202209/03/2022 Chronic pain syndrome 07/18/2022 09/03/2022 Encephalopathy, unspecified 07/18/202208/16 Fusion of spine, thoracolumbar region 07/18/2022 09/03/2022 Gastro-esophageal reflux disease without esophag itis 07/18/2022 09/03/2022 Infection following a proced ure, superficial incisional surgical site, subsequent encounter 07/18/2022 09/03/2022 Muscle weakness (generalized) 07/18/2022 Obstructive sleep apnea (adult) (pediatric) 0307/202209/03/2022 Presence of other specified devices 07/18/2022 09/03/2022 Pseudarthrosis after fusion or arthrodesis 07/1809/03/2022 Restlessness and agitation 07/18/202209/03 Unspecified osteoarthritis, unspecified site 07/202209/03/2022 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 Overview (06/10/2022): Added automatically from request for surgery [id number] DDD (degenerative disc disease), thoracolumbar 0 06/10/2022 Overview (06/10/2022): Added automatically from request for surgery [id number] Spinal stenosis of thoracic region 06/10/2022 Overview (06/10/2022): Added automatically from request for surgery [id number] Sagittal plane imbalance 06/10/2022 Overview (06/10/2022): Added automatically from request for surgery [id number] Hx of spinal fusion 06/10/2022 Overview (06/10/2022): Added automatically from request for surgery [id number] 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, sequela 06/12/2021 09/03/2022 Paraplegia 05/22/2021 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 01/24/2021 Overview (01/24/2021): Added automatically from request for surgery [id number] 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 10/08/2020 Overview (10/08/2020): Added automatically from request for surgery [id number] Traumatic hematoma of right shoulder 08/14/2020 Overview (08/14/2020): Added automatically from request for surgery [id number] Spasticity 08/10/2020 Hypertension 08/03/2020 Class 1 obesity in adult 08/03/2020 At risk for obstructive sleep apnea 08/03/2020 Glenohumeral arthritis, right 07/24/2020 Overview (07/24/2020): Added automatically from request for surgery [id number] Increased frequency of urination 12/08/2016 Unspecified urinary incontinence 12/08/2016 Degenerative lumbar spinal stenosis 08/12/2016 Myofascial pain 12/25/2015 Stenosis of intervertebral foramina 12/19/2015 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 12/19/2015 Gout 08/22/2013 09/03/2022 Muscle strain 08/22/2013 09/03/2022 Benign prostatic hyperplasia 06/15/2013 Peripheral neuropathy 06/15/2013 09/03/2022 Depression 05/16/2013 Allergic rhinitis 10/18/2012 09/03/2022 Arthralgia of multiple sites 10/18/2012 Fatigue 10/18/2012 09/03/2022 Pernicious anemia 10/18/2012 09/03/2022 Shoulder sprain 02/18/2012 09/03/2022 Former smoker 12/16/2010 Lumbago 08/28/2009 Encounters Date Type Department Care Team Description 10/11/2024 Orders Only [facility] Orthopaedic Surgery [address] [facility] [address]th [place] [address] [place] [address] Rylie Salcido MD Presence of intrathecal baclofen pump (Primary Dx) 08/03/2024 10:30 AM CDT Office Visit [facility] Orthopaedic Surgery [address] [place] [address] 6th [place] [address] [place] [address] Partha Fajardo MD Hx of spinal fusion (Primary Dx) 08/03/2024 9:50 AM CDT - 08/03/2024 11:59 PM CDT Hospital Encounter [facility] [address] [place] [address] Hx of spinal fusion Discharge Disposition: Discharge to home or self care from Last 3 Months Immunizations Immunization Administration Dates Next Due Influenza, Quadrivalent, Hig h Dose, Preservative Free, Intrr 03/15/2020 Moderna SARS-CoV-2 Monovalent Vaccination (12+ Y RS) 03/27/2021 PPD TEST 07/24/2022 ZOSTER Recombinant 11/14/2019,06/08/2019 Surgical History Surgery Date Site/Laterality Comments FL TONSILLECTOMY PRIMARY/SECONDARY <AGE 12 as a child BACK SURGERY 07/11/2022 Thoracolumbar posterior spinous instrumentation, fusion and arthordesis (assistant signal maintainer surgeon) Revision of baclofen pump intrathecal catheter, interrogation and programming of baclofen pump (attending surgeon) EPIDURAL STEROID INJECTION Corticosteroid Inj Transforaminal Approach Lumbar W/ Fluoroscopic Guidance - Magdaleno L3-4 TFE (Added by TW Conv) BACLOFEN PUMP IMPLANTATION 04/17/2007 - 05/17/2007 CARPAL TUNNEL RELEASE 05/18/2011 - 05/17/[address] Hidalgo ORIF FIBULA FRACTURE 05/18/2005 - 05/17/2006 Left fracture CENTRAL LINE PLACEMENT > 5 YEARS 07/10/2022 N/A REVERSE TOTAL SHOULDER ARTHROPLASTY 08/10/2020 Right right shoulder reverse replacement dr Nazario Pt. had hematoma week after..surgery 1 wk later BACLOFEN PUMP IMPLANTATION 06/11/2021 BACLOFEN PUMP INSERTION performed by George Jorge DO at [facility] OR MAIN SHOULDER DEBRIDEMENT 08/15/2020 Irrigation and Debridement Right Shoulder REVISION TOTAL SHOULDER ARTHROPLASTY 02/01/2021 Right Right revision of a reverse shoulder arthroplasty to a shoulder hemiarthroplasty BACK SURGERY 02/15/2009 - 03/17/2009 Thoracic 02/25/ --L 1-2-3-4; Dr Gabriel Alexis ([place]) OTHER SURGICAL HISTORY 01/21/2011 BACLOFEN PUMP PLACEMENT REMOVAL EXCHANGE performed by GEORGE JORGE at [facility] OR MAIN BACLOFEN PUMP IMPLANTATION 07/21/2017 BACLOFEN PUMP INSERTION -- ACTUAL BACLOFEN PUMP REPLACEMENT performed by George Jorge DO at [facility] OR [facility] BACK SURGERY 07/16/2006 - 08/15/2006 fusion T 02/26/12/L1-2 SPINE SURGERY 09/15/2016 - 10/15/2016 spinal stenosis surgery SHOULDER SURGERY 2019 Medical History Medical History Date Comments Bladder disorder Low back pain Late effects of spine fusion Anxiety Depression Back spasm Weakness of both lower extremities 2/2 back pain/fusion Spinal stenosis OA (osteoarthritis) Addiction to drug (HCC) Hypertension Sleep apnea GERD (gastroesophageal reflux disease) Family History Medical History Relation Name Comments Cancer Brother chidi Cancer - (Added by TW Conv) Arthritis Father DAd Emphysema Father DAd Family history of emphysema - (Added by TW Conv) Heart disease Father DAd Family history of ischemic heart disease - (Added by TW Conv) Hypertension Father DAd Stroke Father DAd Arthritis Mother Heart disease Mother Family history of ischemic heart disease - (Added by TW Conv) Cancer Other Cancer - (Added by TW Conv) Anesthesia problems Neg Hx Relation Name Status Comments Brother chidi Father DAd Mother Other Social History Tobacco Use Types Packs/Day Years Used Date Smoking Tobacco: Former Pipe 2008 Passive Smoke Exposure: Never Smokeless Tobacco: Never Tobacco Cessation:Counseling Given: Not Answered Comments:10 pipes per day Alcohol Use Standard Drinks/Week Comments Yes 28 (1 standard drink = 0.6 oz pu re alcohol) AUDIT-C Answer Date Recorded Q1: How often do you have a drink containing alcohol? 4 or more times a week 08/03/2024 Q2: How many drinks containi ng alcohol do you have on a typical day when you are drinking? 1 or 2 Q3: How often do you have si x or more drinks on one occasion? Never 08/03/2024 Personal Safety Answer Date Recorded Have you ever been in or are you currently in a harmful physical or emotional relationship or is someone making you feel afraid or unsafe? Denies 03/03/2024 Sex and Gender Information Value Date Recorded Sex Assigned at Not on file Legal Sex Male 5:04 AM GROCERY ASSOCIATE Gender Identity Male 04/25/2020 2:03 PM GROCERY ASSOCIATE Sexual Orientation Straight 04/25/2020 2: 03 PM GROCERY ASSOCIATE Occupation Industry Job Start Date Job End Date retired Not on file Not on file Not on file Obstetrics History Last Filed Vital Signs Vital Sign Reading Time Taken Comments Blood Pressure 153/87 07/13/2024 12:18 PM GROCERY ASSOCIATE Pulse 69 07/13/2024 12:17 PM GROCERY ASSOCIATE Temperature 36.4 C (97.5 F) 03/10/2024 11:17 AM CDT Respiratory Rate 12 03/10/2024 11:17 AM CDT Oxygen Saturation 95% 03/10/2024 11:17 AM CDT Inhaled Oxygen Concentration - - Weight 104.8 kg (231 lb) 07/13/2024 12:17 PM GROCERY ASSOCIATE Height 172.7 cm (5' 8) 03/10/2024 11:17 AM CDT Body Mass Index 35.12 03/10/2024 11:17 AM CDT Plan of Treatment Health Maintenance Due Date Last Done Comments Colon Cancer Screening-Colonoscopy 1950 Depression Screening 1950 Hepatitis B Screening 1968 Pneumococcal vaccine 65+ (1 of 2 - PCV) 1969 Well Visit 65+ 2015 Covid-19 Vaccine ( season) 2024 03/27/2021, 07/13/2020, 06/15/2020 Influenza Vaccine (Season Ended) 2025 03/15/20 20 Fall Risk Assessment 03/03/2025 03/03/2024, 05/07/20 20 DTaP/Tdap/Td Vaccine (2 - Td or Tdap) 04/20/203408/2023 Zoster Vaccine Completed 11/14/2019, 06/08/2019 Hepatitis C Screening Completed 06/26/2022 Abdominal Aortic Aneurysm (A AA) Screen Completed 12/24/2023, 06/04/2023 Goals Goal Patient Goal Type Associated Problems Recent Progress Patient-Stated? Author CCM Chronic Pain Care Plan Chronic Care Management No change(03/10 11:20 AM CDT) No Lucila Andres, RN Note: Problem: Chronic Pain Goals: 1. Minimize further functional decline 2. Maximize quality of life 3. Control pain Strategies: - Activity/exercise program recommendation - Conservative stepwise pain medicine strategy with multi-disciplinary approach - Recommend healthy lifestyle strategies and compensatory methods as needed Reduce the likelihood of falling Lifestyle No Lucila Andres, ARISITDES Note: Below are four things you can do to prevent falls: Begin an exercise program to improve your leg strength & balance Ask your doctor or pharmacist to review your medicines Get annual eye check-ups & update your eyeglasses Make your home safer by: Removing clutter & tripping hazards Putting railings on all stairs & adding grab bars in the bathroom Having good lighting, especially on stairs Contact your local community or senior center for information on exercise, fall prevention programs, or options for improving home safety. Medical Devices Implanted Type Area Nuclear Medical Tech Device Identifier Shelf Expiration Date Model / Serial / Lot [employer] [id number] 29mm Full Wedge Augment Shoulder 15d Baseplate Glenoid - [id number] - [id number] Implanted:Qty: 1 on 08/10/2020 by Guicho Nazario MD at [facility] Other - see comments Right: Shoulder shoutr Inc [id number] 10/17/2024 [id number] / [id number] / Tornier Inc [id number] Tornier Aequalis Perform 15mm Press Fit Long Post Shoulder - [id number] - [id number] Implanted:Qty: 1 on 08/10/2020 by Guicho Nazario MD at [facility] Other - see comments Right: Shoulder shoutr Inc [id number] 03/04/2024 [id number] / [id number] / Lucio Biomet Inc [id number] 14mm 130mm Shoulder Stem Humeral Trabecular Metal Tivanium - [id number] Implanted:Qty: 1 on 08/10/2020 by Guicho Nazario MD at [facility] Other - see comments Right: Shoulder Lucio [employer] Inc [id number] 07/15/2029 [id number] / / [id number] Lucio Biomet Inc [id number] Reverse Shoulder 2 Taper Insert Humeral Trabecular Metal Tivanium - S0 - [id number] Implanted:Qty: 1 on 02/01/2021 by Guicho Nazario MD at [facility] Other - see comments Right: Shoulder Lucio [employer] Inc [id number] 1 03/17/2024 [id number] / 0 / [id number] Description:Dual Taper Inser t Lucio Biomet Inc [id number] Bigliani/Flato w 52mm 30mm Modular Shoulder Offset Head Humeral - S0 - [id number] Implanted:Qty: 1 on 02/01/2021 by Guicho Nazario MD at [facility] Other - see comments Right: Shoulder Lucio [employer] Inc [id number] 1 10/15/2021 [id number] / 0 / [id number] Description:Offset modular h umeral head Plate And Screws Left: Ankle Hardware N/A: Back Description:T-10-L4 Baclofen Nathalie Description: Medtronic Synchromed Ll, Synbaclofen Pump-07/21/2017 Implanted:030 10/2017 (Quantity not on file) Left: Abdomen Medtronic Inc Kit Graft Bone Sponge Xlg Infuse 8cc Granules [id number] - [id number] Implanted:Qty: 1 on 07/11/2022 by Partha Fajardo MD at [facility] N/A: Spine Thoracic Medtronic Inc [id number] 02/15/2024 [id number] / / [id number] Medtronic Inc Kit Graft Bone Sponge Xlg Infuse 8cc Granules [id number] - [id number] Implanted:Qty: 1 on 07/11/2022 by Partha Fajardo MD at [facility] N/A: Spine Thoracic Medtronic Inc [id number] 02/15/2024 [id number] / / [id number] Medtronic Inc Kit Graft Bone Sponge Xlg Infuse 8cc Granules [id number] - [id number] Implanted:Qty: 1 on 07/11/2022 by Partha Fajardo MD at [facility] N/A: Spine Thoracic Medtronic Inc [id number] 02/15/2024 [id number] / / [id number] Depuy Synthes Spine Expedium Viper 2 5.5mm 480mm Straight Raymond Spinal [id number] - [id number] Implanted:Qty: 4 on 07/11/2022 by Partha Fajardo MD at [facility] N/A: Spine Thoracic Depuy Synthes Spine [id number] / / Depuy Synthes Spine [place] Expedium 11mm Closed Wide Blade Pedicle Hook Spinal [id number] - [id number] Implanted:Qty: 2 on 07/11/2022 by Partha Fajardo MD at [facility] N/A: Spine Thoracic Depuy Synthes Spine [id number] / / Depuy Synthes Spine [place] 6mm 40mm 1 Innie Polyaxial Spine Screw Bone Titanium [id number] - [id number] Implanted:Qty: 10 on 07/11/2022 by Partha Fajardo MD at [facility] N/A: Spine Thoracic Depuy Synthes Spine [id number] / / Depuy Synthes Spine [place] 6mm 45mm 1 Innie Polyaxial Spine Screw Bone Titanium [id number] - [id number] Implanted:Qty: 2 on 07/11/2022 by Partha Fajardo MD at [facility] N/A: Spine Thoracic Depuy Synthes Spine [id number] / / Depuy Synthes Spine [place] 6mm 50mm 1 Innie Polyaxial Spine Screw Bone Titanium [id number] - [id number] Implanted:Qty: 1 on 07/11/2022 by Partha Fajardo MD at [facility] N/A: Spine Thoracic Depuy Synthes Spine [id number] / / Depuy Synthes Spine [place] 6.5mm 40mm Polyaxial Spine Screw Bone Titanium 5.5mm Raymond [id number] - [id number] Implanted:Qty: 1 on 07/11/2022 by Partha Fajardo MD at [facility] N/A: Spine Thoracic Depuy Synthes Spine [id number] / / Depuy Synthes Spine Exped[place] 6.5mm 45mm Polyaxial Spine Screw Bone Titanium 5.5mm Raymond [id number] - [id number] Implanted:Qty: 4 on 07/11/2022 by Partha Fajardo MD at [facility] N/A: Spine Thoracic Depuy Synthes Spine [id number] / / Depuy Synthes Spine [place] Expedium 7mm 50mm Fix Myrtle Spinal Titanium [id number] - [id number] Implanted:Qty: 5 on 07/11/2022 by Partha Fajardo MD at [facility] N/A: Spine Thoracic Depuy Synthes Spine [id number] / / Depuy Synthes Spine [place] Expedium 7mm 55mm Fix Myrtle Spinal Titanium [id number] - [id number] Implanted:Qty: 1 on 07/11/2022 by Partha Fajardo MD at [facility] N/A: Spine Thoracic Depuy Synthes Spine [id number] / / Depuy Synthes Spine [place] Expedium 8mm 55mm Fix Myrtle Spinal Titanium [id number] - [id number] Implanted:Qty: 1 on 07/11/2022 by Partha Fajardo MD at [facility] N/A: Spine Thoracic Depuy Synthes Spine [id number] / / Depuy Synthes Spine Expedium 8mm 80mm Polyaxial Spine Screw Bone Titanium Nonsterile [id number] - [id number] Implanted:Qty: 2 on 07/11/2022 by Partha Fajardo MD at [facility] N/A: Spine Thoracic Depuy Synthes Spine [id number] / / Depuy Synthes Spine Expedium 1 Inner Monoaxial Spine Screw Set Titanium [id number] - [id number] Implanted:Qty: 20 on 07/11/2022 by Partha Fajardo MD at [facility] N/A: Spine Thoracic Depuy Synthes Spine [id number] / / Depuy Synthes Spine [place] Expedium Myrtle Spinal Nut Lock Titanium [id number] - [id number] Implanted:Qty: 8 on 07/11/2022 by Partha Fajardo MD at [facility] N/A: Spine Thoracic Depuy Synthes Spine [id number] / / Depuy Synthes Spine [place] Expedium Slot Spine Mini Left Offset Connector Raymond Titanium [id number] - [id number] Implanted:Qty: 1 on 07/11/2022 by Partha Fajardo MD at [facility] N/A: Spine Thoracic Depuy Synthes Spine [id number] / / Depuy Synthes Spine [place] Expedium Slot Spine Mini Right Offset Connector Raymond [id number] - [id number] Implanted:Qty: 1 on 07/11/2022 by Partha Fajardo MD at [facility] N/A: Spine Thoracic Depuy Synthes Spine [id number] / / Depuy Synthes Spine 5.5mm Offset Twister Wire Titanium Latex Free [id number] - [id number] Implanted:Qty: 6 on 07/11/2022 by Partha Fajardo MD at [facility] N/A: Spine Thoracic Depuy Synthes Spine [id number] / / Depuy Synthes Spine [place] 5.5mm 40mm Transverse Body Spine Connector Raymond Titanium [id number] - [id number] Implanted:Qty: 2 on 07/11/2022 by Partha Fajardo MD at [facility] N/A: Spine Thoracic Depuy Synthes Spine [id number] / / Depuy Synthes Spine [place] 5.5mm 2 Side By Side Spine Connector Raymond Nonsterile [id number] - [id number] Implanted:Qty: 4 on 07/11/2022 by Partha Fajardo MD at [facility] N/A: Spine Thoracic Depuy Synthes Spine [id number] / / Medtronic Inc Ascenda 2 Attached Collet Catheter Connector [place] Removal Tool 8785 - [id number] Implanted:Qty: 1 on 07/11/2022 by Douglas Marie MD at [facility] Spine Thoracic Medtronic Inc [id number] 06/09/2024 8785 / / [id number] Abyrx Hemasorb Filled Applicator Surgical [place]-351 - [id number] Implanted:Qty: 1 on 07/11/2022 by Partha Fajardo MD at [facility] N/A: Spine Thoracic Abyrx 12/16/2024 DEDRICK-351 / / [id number] Abyrx Hemasorb Filled Applicator Surgical [place]-351 - [id number] Implanted:Qty: 1 on 07/11/2022 by Partha Fajardo MD at [facility] N/A: Spine Thoracic Abyrx 12/16/2024 DEDRICK-351 / / [id number] Allosource Crushed Chip Frozen Graft 90ml Bone Cancellous [id number] - [id number] Implanted:Qty: 1 on 07/11/2022 by Partha Fajardo MD at [facility] N/A: Spine Thoracic Allosource 01/20/2027 [id number] / / [id number] Allosource Crushed Chip Frozen Graft 90ml Bone Cancellous [id number] - [id number] Implanted:Qty: 1 on 07/11/2022 by Partha Fajardo MD at [facility] N/A: Spine Thoracic Allosource 11/03/2026 [id number] / / [id number] Allosource Crushed Chip Frozen Graft 60ml Bone Cancellous [id number] - [id number] Implanted:Qty: 1 on 07/11/2022 by Partha Fajardo MD at [facility] N/A: Spine Thoracic Allosource 12/09/2026 [id number] / / [id number] Medtronic Inc Kit Graft Bone Sponge Xlg Infuse 8cc Granules [id number] - [id number] Implanted:Qty: 1 on 07/11/2022 by Partha Fajardo MD at [facility] N/A: Spine Thoracic Medtronic Inc [id number] 02/15/2024 [id number] / / [id number] Medtronic Usa Inc X Pump Infusion Programmable Ulp Ami 40ml Volume Synchromed Iii 8667-40 - [id number] - [id number] Implanted:Qty: 1 on 03/03/2024 by Leonie Mayers MD at [facility] Left: Abdomen Medtronic Usa Inc X 04/30/2025 8667-40 / [id number] / Medtronic Inc Kit Intrathecal Catheter Revision Segment [place] Removal Ascenda 8784 - [id number] Implanted:Qty: 1 on 03/03/2024 by Leonie Mayers MD at [facility] Left: Abdomen Medtronic Inc 05/04/2025 8784 / / [id number] Explanted Type Area Nuclear Medical Tech Device Identifier Shelf Expiration Date Model / Serial / Lot Tornier Inc [id number] Tornier Aequalis Perform 36mm Lateralize Reverse Shoulder +3mm - [id number] - [id number] Implanted:Qty : 1 on 08/10/2020 by Guicho Nazario MD at [facility] Explanted:Qty : 1 on 02/01/2021 by Guicho Nazario MD at [facility] Other - see comments Right: Shoulder shoutr Inc [id number] 03/05/2025 [id number] / [id number] / Lucio Biomet Inc [id number] 36mm H+3mm Reverse Retentive Humerus 12d 65d Liner Shoulder - [id number] Implanted:Qty : 1 on 08/10/2020 by Guicho Nazario MD at [facility] Explanted:Qty : 1 on 02/01/2021 by Guicho Nazario MD at [facility] Other - see comments Right: Shoulder Lucio Biomet Inc [id number] 12/15/2022 [id number] / / [id number] Lucio Biomet Inc [id number] Reverse Shoulder 12d +12mm Spacer Humeral Trabecular Metal Latex Free - Sna - [id number] Implanted:Qty : 1 on 08/10/2020 by Guicho Nazario MD at [facility] Explanted:Qty : 1 on 02/01/2021 by Guicho Nazario MD at [facility] Other - see comments Right: Shoulder Lucio Biomet Inc [id number] 08/15/2029 [id number] / NA / [id number] Depuy Synthes Spine [place] Expedium 2 Spine Wire Fixation Cocr Titanium [id number] - [id number] Explanted:Qty : 2 on 07/11/2022 by Partha Fajardo MD at [facility] N/A: Spine Thoracic Depuy Synthes Spine [id number] / / Procedures Procedure Name Priority Date/Time Associated Diagnosis Comments XR SCOLIOSIS AP LAT Schedule Routine, Read Routine (OP Routine) 08/03/2024 10:14 AM CDT Hx of spinal fusion HEPATITIS PANEL, ACUTE Routine 06/26/2022 3:18 PM GROCERY ASSOCIATE Flatback syndrome DDD (degenerative disc disease), thoracolumbar Spinal stenosis of thoracic region Sagittal plane imbalance Hx of spinal fusion from Last 3 Months or Most Recently Relevant to Health Maintenance Results * XR Scoliosis Ap and Lateral (08/03/2024 10:14 AM CDT) Anatomical Region Laterality Modality Spine N/A Computed Radiogr aphy 08/03/2024 10:3 2 AM CDT Impressions 08/03/2024 10:32 AM CDT Unchanged posterior instrumented T3-pelvis fusion in expected position. Electronically signed by: Singh Tomlin M.D. Narrative 08/03/2024 10:32 AM CDT XR SCOLIOSIS AP AND LATERAL HISTORY: Spinal fusion. FINDINGS: Digitally stitched AP and lateral seated radiographs of the spine are obtained and compared with 12/04/2023. There is redemonstrated posterior instrumented spinal fusion spanning T3 to the sacrum and pelvis. Instrumentation is intact. Alignment is unchanged. Vertebral body heights are within normal limits. Soft tissues are normal. Unchanged infusion pump overlying the left low back soft tissues. Procedure Note Singh Tomlin MD - 08/03/2024 XR SCOLIOSIS AP AND LATERAL HISTORY: Spinal fusion. FINDINGS: Digitally stitched AP and lateral seated radiographs of the spine are obtained and compared with 12/04/2023. There is redemonstrated posterior instrumented spinal fusion spanning T3 to the sacrum and pelvis. Instrumentation is intact. Alignment is unchanged. Vertebral body heights are within normal limits. Soft tissues are normal. Unchanged infusion pump overlying the left low back soft tissues. IMPRESSION: Unchanged posterior instrumented T3-pelvis fusion in expected position. Electronically signed by: Singh Tomlin M.D. Partha Fajardo MD IMG XR PROCEDURES Final Result * Hepatitis panel, acute (06/26/2022 3:18 PM GROCERY ASSOCIATE) Hep A IgM Nonreactive Nonreactive [facility] Hep B core IgM Nonreactive Nonreactive [facility] Hep C Ab Nonreactive Nonreactive [facility] Comment:Antibodies to HCV no t detected. Does NOT exclude the possibility of recent exposure to HCV. Current interpretive data was last revised on 22 HepBsAg Nonreactive Nonreactive [facility] Blood 06/26/2022 3:18 PM GROCERY ASSOCIATE 06/26/2022 3:57 PM GROCERY ASSOCIATE Partha Fajardo MD LAB MICROBIOLOGY - GENER AL ORDERABLES Final Result [facility] Department [place] [address] from Last 3 Months or Most Recently Relevant to Health Maintenance Insurance MEDICARE MEDICARE COMMERCIAL GENERIC MEDICARE COMMERCIAL GENERIC Advance Directives For more information, please contact: [phone] * Full Code (Latest Code Status on File) Date Activated Date Inactivated Comments 07/11/2022 8:59 PM 07/24/2022 4:39 PM * Full Code Date Activated Date Inactivated Comments 07/10/2022 12:17 PM 07/11/2022 4:48 AM * Full Code Date Activated Date Inactivated Comments 02/01/2021 5:06 PM 02/02/2021 5:23 PM * Full Code Date Activated Date Inactivated Comments 08/14/2020 4:15 PM 08/17/2020 6:14 PM * Full Code Date Activated Date Inactivated Comments 08/14/2020 4:09 PM 08/14/2020 4:15 PM Care Teams Fight Manager Relationship Specialty Start Date End Date Rich Hoffman MD [address] [place] [address] PCP - General Family Medicine 02/25/22 Leonie Mayers MD [facility] [address] [place] [address] Anesthesiologist Pain Management 03/03/24
--- OUTSIDE RECORDS SUMMARY | 2024-10-19 00:16 | XMS_ITS | Referral Summary ---
Author Organization [facility] Address [address] [place] [address] Care Team Providers Care Gearcase Assembler Name Role Phone Rich Hoffman MD Primary Care Provider [phone] Leonie Mayers MD Unavailable [phone] Encounters Date Type Department Care Team Description 10/11/[address] [facility] Orthopaedic [facility] Advanced Medicine 12th [place] [address] [place] [address] Rylie Salcido MD Presence of intrathecal baclofen pump (Primary Dx) 08/03/2024 9:50 AM CDT - 08/03/2024 11:59 PM CDT Hospital Encounter [facility] [address] [place] [address] Hx of spinal fusion Discharge Disposition: Discharge to home or self care 08/03/2024 10:30 AM CDT Office Visit [facility] Orthopaedic Surgery [address] [place] [address] Advanced Medicine 6th [place] [address] [place] [address] Partha Fajardo MD Hx of spinal fusion (Primary Dx) from Last 3 Months Allergies Active Allergy Reactions Criticality Noted Date [...] 20 % ointment Apply topically as needed Active Zepbound 2.5 mg/0.5 mL pen injector [...] 80,000 mcgIndications:Pr esence of intrathecal baclofen pump 65860 mcg intrathec Continuous 11/23/2024 Active baclofen (GABLOFEN) 40,000 mcg/20mL (2,000 mcg/mL) intrathecal 80,000 mcgIndications:Pr esence of intrathecal baclofen pump 20673 mcg intrathec Continuous 07/13/2024 10/12/19 25 Discontinued [...] (generalized) 07/18/2022 Obstructive sleep apnea (adult) (pediatric) 03/0 07/202209/03/2022 Presence of other specified devices 07/18/2022 09/03/2022 Pseudarthrosis after fusion or arthrodesis 07/1809/03/2022 Restlessness and agitation 07/18/202209/03 Unspecified osteoarthritis, unspecified site 07/202209/03/2022 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 Overview (06/10/2022): Added automatically from request for surgery [id number] DDD (degenerative disc disease), thoracolumbar 0 06/10/2022 Overview (06/10/2022): Added automatically from request for surgery [id number] Spinal stenosis of thoracic region 06/10/2022 Overview (06/10/2022): Added automatically from request for surgery [id number] Sagittal plane imbalance 06/10/2022 Overview (06/10/2022): Added automatically from request for surgery [id number] Hx of spinal fusion 06/10/2022 Overview (06/10/2022): Added automatically from request for surgery [id number] 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, sequela 06/12/2021 09/03/2022 Paraplegia 05/22/2021 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 01/24/2021 Overview (01/24/2021): Added automatically from request for surgery [id number] 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 10/08/2020 Overview (10/08/2020): Added automatically from request for surgery [id number] Traumatic hematoma of right shoulder 08/14/2020 Overview (08/14/2020): Added automatically from request for surgery [id number] Spasticity 08/10/2020 Hypertension 08/03/2020 Class 1 obesity in adult 08/03/2020 At risk for obstructive sleep apnea 08/03/2020 Glenohumeral arthritis, right 07/24/2020 Overview (07/24/2020): Added automatically from request for surgery [id number] Increased frequency of urination 12/08/2016 Unspecified urinary [...] 02/18/2012 09/03/2022 Former smoker 12/16/2010 Lumbago 08/28/2009 Immunizations Immunization Administration Dates Next Due Influenza, Quadrivalent, Hig h Dose, Preservative Free, Intrr 03/15/2020 Moderna SARS-CoV-2 Monovalent Vaccination (12+ Y RS) 03/27/2021 PPD TEST 07/24/2022 ZOSTER Recombinant 11/14/2019,06/08/2019 Social History Tobacco Use Types Packs/Day Years Used Date Smoking Tobacco: Former Pipe 1 969 - 2009 Passive Smoke Exposure: Never Smokeless Tobacco: Never [...] on file Legal Sex Male 5:04 AM DIRECTOR OF LABOR AND DELIVERY Gender Identity Male 04/25/2020 2:03 PM DIRECTOR OF LABOR AND DELIVERY Sexual Orientation Straight 04/25/2020 2: 03 PM DIRECTOR OF LABOR AND DELIVERY Occupation Industry Job Start Date Job End Date retired Not on file Not on file Not on file Last Filed Vital Signs Vital Sign Reading Time Taken Comments Blood Pressure 153/87 07/13/2024 12:18 PM DIRECTOR OF LABOR AND DELIVERY Pulse 69 07/13/2024 12:17 PM DIRECTOR OF LABOR AND DELIVERY Temperature 36.4 C (97.5 F) 03/10/2024 11:17 AM CDT Respiratory Rate 12 03/10/2024 11:17 AM CDT Oxygen Saturation 95% 03/10/2024 11:17 AM CDT Inhaled Oxygen Concentration - - Weight 104.8 kg (231 lb) 07/13/2024 12:17 PM DIRECTOR OF LABOR AND DELIVERY Height 172.7 cm (5' 8) 03/10/2024 11:17 AM CDT Body Mass Index 35.12 03/10/2024 11:17 AM CDT Plan of Treatment Not on file Goals Goal Patient Goal Type Associated Problems Recent Progress Patient-Stated? Author CCM Chronic Pain Care Plan Chronic Care Management No change(03/10 11:20 AM CDT) No Lucila Andres, ARISTIDES Note: Problem: Chronic Pain Goals: 1. Minimize further functional decline 2. Maximize quality of life 3. Control pain Strategies: - Activity/exercise program recommendation - Conservative stepwise pain medicine strategy with multi-disciplinary approach - Recommend healthy lifestyle strategies and compensatory methods as needed Reduce the likelihood of falling Lifestyle No Lucila Andres, ARISTIDES Note: Below are four things you can [...] home safety. Medical Devices Implanted Type Area Change Management Coordinator Device Identifier Shelf Expiration Date Model / Serial / Lot Tornier Inc [id number] 29mm Full Wedge Augment Shoulder 15d Baseplate Glenoid - [id number] - [id number] Implanted:Qty: 1 on 08/10/2020 by Guicho Nazario MD at [facility] Other - see comments Right: Shoulder GreenBytes Technology Inc [id number] 10/17/2024 [id number] / [id number] / Tornier Inc [id number] Tornier Aequalis Perform 15mm Press Fit Long Post Shoulder - [id number] - [id number] Implanted:Qty: 1 on 08/10/2020 by Guicho Nazario MD at [facility] Other - see comments Right: Shoulder GreenBytes Technology Inc [id number] 03/04/2024 [id number] / [id number] / Lucio Biomet Inc [id number] 14mm 130mm Shoulder Stem Humeral Trabecular Metal Tivanium - [id number] Implanted:Qty: 1 on 08/10/2020 by Guicho Nazario MD at [facility] Other - see comments Right: Shoulder Lucio Biomet Inc [id number] 07/15/2029 [id number] / / [id number] Lucio Biomet Inc [id number] Reverse Shoulder 2 Taper Insert Humeral Trabecular Metal Tivanium - S0 - [id number] Implanted:Qty: 1 on 02/01/2021 by Guicho Nazario MD at [facility] Other - see comments Right: Shoulder Lucio Biomet Inc [id number] 1 03/17/2024 [id number] / 0 / [id number] Description:Dual Taper Inser t Lucio Biomet Inc [id number] Bigliani/Flato w 52mm 30mm Modular Shoulder Offset Head Humeral - S0 - [id number] Implanted:Qty: 1 on 02/01/2021 by Guicho Nazario MD at [facility] Other - see comments Right: Shoulder Lucio Biomet Inc [id number] 1 10/15/2021 [id number] / 0 / [id number] Description:Offset modular h umeral head Plate And Screws Left: Ankle Hardware N/A: Back Description:T-10-L4 Baclofen [place] Description: Medtronic Synchromed Ll, Synbaclofen Pump-07/21/2017 Implanted:030 10/2017 (Quantity not on file) Left: Abdomen Medtronic Inc Kit Graft Bone Sponge Xlg Infuse 8cc Granules [id number] - [id number] Implanted:Qty: 1 on 07/11/2022 by Partha Fajardo MD at [facility] N/A: Spine Thoracic Medtronic Inc [id number] 02/15/2024 [id number] / / [id number] Medtronic Inc Kit Graft Bone Sponge Xlg Infuse 8cc Granules [id number] - [id number] Implanted:Qty: 1 on 07/11/2022 by Partha Fajardo MD at [facility] N/A: Spine Thoracic Medtronic Inc [id number] 02/15/2024 [id number] / / [id number] Medtronic Inc Kit Graft Bone Sponge Xlg Infuse 8cc Granules [id number] - [id number] Implanted:Qty: 1 on 07/11/2022 by Partha Fajardo MD at [facility] N/A: Spine Thoracic Medtronic Inc [id number] 02/15/2024 [id number] / / [id number] Depuy Synthes Spine Expedium Viper 2 5.5mm 480mm Straight Raymond Spinal [id number] - [id number] Implanted:Qty: 4 on 07/11/2022 by Parhta Fajardo MD at [facility] N/A: Spine Thoracic Depuy Synthes Spine [id number] / / Depuy Synthes Spine [place] Expedium 11mm Closed Wide Blade Pedicle Hook Spinal [id number] - [id number] Implanted:Qty: 2 on 07/11/2022 by Partha Fajardo MD at [facility] N/A: Spine Thoracic Depuy Synthes Spine [id number] / / Depuy Synthes Spine Exped[place] 6mm 40mm 1 Innie Polyaxial Spine Screw Bone Titanium [id number] - [id number] Implanted:Qty: 10 on 07/11/2022 by Partha Fajardo MD at [facility] N/A: Spine Thoracic Depuy Synthes Spine [id number] / / Depuy Synthes Spine Exped[place] 6mm 45mm 1 Innie Polyaxial Spine Screw Bone Titanium [id number] - [id number] Implanted:Qty: 2 on 07/11/2022 by Partha Fajardo MD at [facility] N/A: Spine Thoracic Depuy Synthes Spine [id number] / / Depuy Synthes Spine Expedium 6mm 50mm 1 Innie Polyaxial Spine Screw Bone Titanium [id number] - [id number] Implanted:Qty: 1 on 07/11/2022 by Partha Fajardo MD at [facility] N/A: Spine Thoracic Depuy Synthes Spine [id number] / / Depuy Synthes Spine Expedium 6.5mm 40mm Polyaxial Spine Screw Bone Titanium 5.5mm Raymond [id number] - [id number] Implanted:Qty: 1 on 07/11/2022 by Partha Fajardo MD at [facility] N/A: Spine Thoracic Depuy Synthes Spine [id number] / / Depuy Synthes Spine Exped[place] 6.5mm 45mm Polyaxial Spine Screw Bone Titanium 5.5mm Raymond [id number] - [id number] Implanted:Qty: 4 on 07/11/2022 by Partha Fajardo MD at [facility] N/A: Spine Thoracic Depuy Synthes Spine [id number] / / Depuy Synthes Spine [place] Expedium 7mm 50mm Fix [place] Spinal Titanium [id number] - [id number] Implanted:Qty: 5 on 07/11/2022 by Partha Fajardo MD at [facility] N/A: Spine Thoracic Depuy Synthes Spine [id number] / / Depuy Synthes Spine [place] Expedium 7mm 55mm Fix Stockett Spinal Titanium [id number] - [id number] Implanted:Qty: 1 on 07/11/2022 by Partha Fajardo MD at [facility] N/A: Spine Thoracic Depuy Synthes Spine [id number] / / Depuy Synthes Spine [place] Expedium 8mm 55mm Fix Stockett Spinal Titanium [id number] - [id number] Implanted:Qty: 1 on 07/11/2022 by Partha Fajardo MD at [facility] N/A: Spine Thoracic Depuy Synthes Spine [id number] / / Depuy Synthes Spine Exped[place] 8mm 80mm Polyaxial Spine Screw Bone Titanium Nonsterile [id number] - [id number] Implanted:Qty: 2 on 07/11/2022 by Partha Fajardo MD at [facility] N/A: Spine Thoracic Depuy Synthes Spine [id number] / / Depuy Synthes Spine Expedium 1 Inner Monoaxial Spine Screw Set Titanium [id number] - [id number] Implanted:Qty: 20 on 07/11/2022 by Partha Fajardo MD at [facility] N/A: Spine Thoracic Depuy Synthes Spine [id number] / / Depuy Synthes Spine [place] Expedium Stockett Spinal Nut Lock Titanium [id number] - [id number] Implanted:Qty: 8 on 07/11/2022 by Partha Fajardo MD at [facility] N/A: Spine Thoracic Depuy Synthes Spine [id number] / / Depuy Synthes Spine [place] Expedium Slot Spine Mini Left Offset Connector Raymond Titanium [id number] - [id number] Implanted:Qty: 1 on 07/11/2022 by Partha Fajardo MD at [facility] N/A: Spine Thoracic Depuy Synthes Spine [id number] / / Depuy Synthes Spine [place] Expedium Slot Spine Mini Right Offset Connector Raymond [id number] - [id number] Implanted:Qty: 1 on 07/11/2022 by Partha Fajardo MD at [facility] N/A: Spine Thoracic Depuy Synthes Spine [id number] / / Depuy Synthes Spine 5.5mm Offset Twister Wire Titanium Latex Free [id number] - [id number] Implanted:Qty: 6 on 07/11/2022 by Partha Fajardo MD at [facility] N/A: Spine Thoracic Depuy Synthes Spine [id number] / / Depuy Synthes Spine [place] 5.5mm 40mm Transverse Body Spine Connector Raymond Titanium [id number] - [id number] Implanted:Qty: 2 on 07/11/2022 by Partha Fajardo MD at [facility] N/A: Spine Thoracic Depuy Synthes Spine [id number] / / Depuy Synthes Spine [place] 5.5mm 2 Side By Side Spine Connector Raymond Nonsterile [id number] - [id number] Implanted:Qty: 4 on 07/11/2022 by Partha Fajardo MD at [facility] N/A: Spine Thoracic Depuy Synthes Spine [id number] / / Medtronic Inc Ascenda 2 Attached Collet Catheter Connector [place] Removal Tool 8785 - [id number] Implanted:Qty: 1 on 07/11/2022 by Douglas Marie MD at [facility] Spine Thoracic Medtronic Inc [id number] 06/09/2024 8785 / / [id number] Abyrx Hemasorb Filled Applicator Surgical [place]-351 - [id number] Implanted:Qty: 1 on 07/11/2022 by Partha Fajardo MD at [facility] N/A: Spine Thoracic Abyrx 12/16/2024 DEDRICK-351 / / [id number] Abyrx Hemasorb Filled Applicator Surgical [place]-351 - [id number] Implanted:Qty: 1 on 07/11/2022 by Partha Fajardo MD at [facility] N/A: Spine Thoracic Abyrx 12/16/2024 DEDRICK-351 / / [id number] Allosource Crushed Chip Frozen Graft 90ml Bone Cancellous [id number] - [id number] Implanted:Qty: 1 on 07/11/2022 by Partha Fajardo MD at [facility] N/A: Spine Thoracic Allosource 01/20/2027 [id number] / / [id number] Allosource Crushed Chip Frozen Graft 90ml Bone Cancellous 09286763 - [id number] Implanted:Qty: 1 on 07/11/2022 by Partha Fajardo MD at [facility] N/A: Spine Thoracic Allosource 11/03/2026 [id number] / / [id number] Allosource Crushed Chip Frozen Graft 60ml Bone Cancellous [id number] - [id number] Implanted:Qty: 1 on 07/11/2022 by Partha Fajardo MD at [facility] N/A: Spine Thoracic Allosource 12/09/2026 [id number] / / [id number] Medtronic Inc Kit Graft Bone Sponge Xlg Infuse 8cc Granules 1093573 - [id number] Implanted:Qty: 1 on 07/11/2022 by Partah Fajardo MD at [facility] N/A: Spine Thoracic Medtronic Inc [id number] 02/15/2024 [id number] / / [id number] Medtronic Usa Inc X Pump Infusion Programmable Ulp Ami 40ml Volume Synchromed Iii 8667-40 - [id number] - [id number] Implanted:Qty: 1 on 03/03/2024 by Leonie Mayers MD at [facility] Left: Abdomen Medtronic Usa Inc X 04/30/2025 8667-40 / [id number] / Medtronic Inc Kit Intrathecal Catheter Revision Segment [place] Removal Ascenda 8784 - [id number] Implanted:Qty: 1 on 03/03/2024 by Leonie Mayers MD at [facility] Left: Abdomen Medtronic Inc 05/04/2025 8784 / / [id number] Explanted Type Area Change Management Coordinator Device Identifier Shelf Expiration Date Model / Serial / Lot Tornier Inc [id number] Tornier Aequalis Perform 36mm Lateralize Reverse Shoulder +3mm - [id number] - [id number] Implanted:Qty : 1 on 08/10/2020 by Guicho Nazario MD at [facility] Explanted:Qty : 1 on 02/01/2021 by Guicho Nazario MD at [facility] Other - see comments Right: Shoulder Flaconi Inc [id number] 03/05/2025 CJW509 / [id number] / Lucio Biomet Inc [id number] 36mm H+3mm Reverse Retentive Humerus 12d 65d Liner Shoulder - [id number] Implanted:Qty : 1 on 08/10/2020 by Guicho Nazario MD at [facility] Explanted:Qty : 1 on 02/01/2021 by Guicho Nazario MD at [facility] Other - see comments Right: Shoulder Lucio Biomet Inc [id number] 12/15/2022 [id number] / / [id number] Lucio Biomet Inc [id number] Reverse Shoulder 12d +12mm Spacer Humeral Trabecular Metal Latex Free - Sna - [id number] Implanted:Qty : 1 on 08/10/2020 by Guicho Nazario MD at [facility] Explanted:Qty : 1 on 02/01/2021 by Guicho Nazario MD at [facility] Other - see comments Right: Shoulder Lucio Biomet Inc [id number] 08/15/2029 [id number] / NA / [id number] Depuy Synthes Spine [place] Expedium 2 Spine Wire Fixation Cocr Titanium [id number] - [id number] Explanted:Qty : 2 on 07/11/2022 by Partha Fajardo MD at [facility] N/A: Spine Thoracic Depuy Synthes Spine [id number] / / Procedures Procedure Name Priority Date/Time Associated Diagnosis Comments XR SCOLIOSIS AP LAT Schedule Routine, Read Routine (OP Routine) 08/03/2024 10:14 AM CDT Hx of spinal fusion HEPATITIS PANEL, ACUTE Routine 06/26/2022 3:18 PM DIRECTOR OF LABOR AND DELIVERY Flatback syndrome DDD (degenerative disc disease), thoracolumbar [...] * Hepatitis panel, acute (06/26/2022 3:18 PM DIRECTOR OF LABOR AND DELIVERY) Hep A IgM Nonreactive Nonreactive [facility] Hep B core IgM Nonreactive Nonreactive [facility] Hep C Ab Nonreactive Nonreactive [facility] Comment:Antibodies to HCV no t detected. Does NOT exclude the possibility of recent exposure to HCV. Current interpretive data was last revised on 22 HepBsAg Nonreactive Nonreactive [facility] Blood 06/26/2022 3:18 PM DIRECTOR OF LABOR AND DELIVERY 06/26/2022 3:57 PM DIRECTOR OF LABOR AND DELIVERY Partha Fajardo MD LAB MICROBIOLOGY - GENER AL ORDERABLES Final Result [facility] Department [place] [address] from Last 3 Months or Most Recently Relevant to Health Maintenance Insurance MEDICARE MEDICARE COMMERCIAL GENERIC MEDICARE COMMERCIAL GENERIC Advance Directives For more information, please contact: [phone] * Full Code (Latest Code Status on [...] 4:09 PM 08/14/2020 4:15 PM Care Teams Gearcase Assembler Relationship Specialty Start Date End Date Rich Hoffman MD [address] [place] [address] PCP - General Family Medicine 02/25/22 Leonie Mayers MD [address] [place] [address] Anesthesiologist Pain Management 03/03/24
--- OUTSIDE RECORDS SUMMARY | 2024-10-19 00:16 | XMS_ITS | Clinical Summary ---
Author Organization [facility] Address [address] [place] [address] Phone Care Team Providers Care Hypo Dipper Name Role Phone Barrington Casillas MD Primary Care Provider [phone] Allergies Active Allergy Reactions Criticality Noted Date [...] on file Legal Sex Male 6:04 AM NEGATIVE RESTORER Gender Identity Not on file Sexual Orientation Not on file Last Filed Vital Signs Vital Sign Reading Time Taken Comments Blood Pressure 121/57 06/12/2021 7:39 AM NEGATIVE RESTORER Pulse 64 06/12/2021 7:39 AM NEGATIVE RESTORER Temperature 36.9 C (98.4 F) 06/12/2021 7:39 AM NEGATIVE RESTORER Respiratory Rate 18 06/12/2021 7:39 AM NEGATIVE RESTORER Oxygen Saturation 92% 06/12/2021 7:39 AM NEGATIVE RESTORER Inhaled Oxygen Concentration - - Weight 102.5 kg (225 lb 14.4 oz) 2021 10:47 AM NEGATIVE RESTORER Height 177.8 cm (5' 10) 06/11/2021 10: 47 AM NEGATIVE RESTORER Body Mass Index 32.41 06/11/2021 10:47 AM NEGATIVE RESTORER Plan of Treatment Health Maintenance Due Date [...] 11/14/2019, 06/08/2019 Medical Devices Implanted Type Area Azure Architect Device Identifier Shelf Expiration Date Model / Serial / Lot Pump Synchromed Ii 40ml 8637-40 - [id number] Implanted:Qty: 1 on 01/21/2011 at [facility] Catheter Left: Abdomen [employer]- NEUROLOGIC TECH 05/23/2012 8637-40 / [id number] / Cath It Ascenda 114.3cm 8780 - [id number] Implanted:Qty: 1 on 06/11/2021 by George Jorge DO at [facility] Catheter Left: Back [employer]- NEUROLOGIC TECH 12/20/2022 8780 / / [id number] Description:Requisition # [id number]. Pump Synchromed Ii 40ml 8637-40 - [id number] Implanted:Qty: 1 on 07/21/2017 by George Jorge DO at [facility] Other Right: Abdomen [employer]- NEUROLOGIC TECH 04/22/2019 8637-40 / / [id number] Description:Both Medtronic c omponents are processed on requisition, [id number]. Connector Pump Sutureless 8578 - [id number] Implanted:Qty: 1 on 07/21/2017 by George Jorge DO at [facility] Other Right: Abdomen [employer]- NEUROLOGIC TECH 04/22/2019 8578 / / [id number] Explanted Type Area Azure Architect Device Identifier Shelf Expiration Date Model / Serial / Lot Cath Indura [id number] Implanted:Qty: 1 on 01/21/2011 at [facility] Explanted:Qty: 1 on 07/21/2017 at [facility] Catheter Right: Back [employer]- NEUROSURGERY 11/20/2012 8709 / / [id number] Baclofen Pump Catheter Explanted:Qty: 1 on 06/11/2021 at [facility] Left: Back Insurance MEDICARE PART A AND B Advance Directives For more information, please contact: [phone] * Full Code (Latest Code Status on [...] 1:49 PM 07/21/2017 2:43 PM Care Teams Hypo Dipper Relationship Specialty Start Date End Date Barrington Casillas MD [address] [place] [phone] PCP - General Internal Medicine 07/14/17
--- OUTSIDE RECORDS SUMMARY | 2024-10-19 00:16 | XMS_ITS | Patient Health Record ---
Author Organization [facility] Address [address] 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
--- NOTE | 2024-10-19 07:38 | WPDHPUPDATE1 ---
History and Physical Update Update Date/Time: 10/19/24 07:38 History and Physical has been reviewed, including an updated exam of the patient. There are NO changes in the patient's condition. Risks, benefits, and alternatives have been discussed and questions answered. Patient agrees to proceed with procedure.
[2024-10-19] MEDS: ACETAMINOPHEN 500 MG TABLET 1000 MG PO (07:45)
[2024-10-19] MEDS: LACTATED RINGERS 1,000 ML 30 ML IV CONT ×2 (08:03→11:10)
--- NOTE | 2024-10-19 08:08 | WPDANESEPPF ---
Anes - Initial Pre Proc Eval Procedure: Operation Date: 10/19/24 09:00 Proposed Procedures p Right Hydrocelectomy, Possible Right Spermatocelectomy - Camila Stovall MD s Possible Right Orchiopexy - Camila Stovall MD Date/Time: 10/19/24 08:08 Surgeon: Camila Stovall MD Pre Op Diagnosis: right hydrocele, scrotal swelling Patient Data Age: 74 Gender: M Height: 1.73 m Weight: 112.1 kg Last Vital Signs Temp 37.0 C 10/19/24 08:00 Pulse 59 L 10/19/24 08:00 BP 122/71 10/19/24 08:00 Pulse Ox 97 10/19/24 08:00 O2 Del Method Room Air 10/19/24 08:00 Allergies Allergy/AdvReac Type Severity Reaction Status Date / Time ciprofloxacin Allergy Mild Swelling Verified 10/19/24 07:58 oxycodone Allergy Mild Other Verified 10/19/24 07:58 trazodone AdvReac Severe Unresponsiv Verified 10/19/24 07:58 e ambien AdvReac Other Uncoded 10/19/24 07:58 Home Medications ?Medication ?Instructions ?Recorded ?Confirmed ?Type calcium 600 mg (as 1 cap PO DAILY 04/05/19 10/06/24 History carbonate)-vitamin D3 5 mcg (200 unit) capsule (Calcium 600 + D(3)) cyanocobalamin (vitamin B-12) 1,000 mcg PO DAILY 02/09/24 10/06/24 History 1,000 mcg tablet ferrous sulfate 325 mg (65 mg 325 mg PO DAILY 02/09/24 10/06/24 History iron) tablet gabapentin 300 mg capsule 300 mg PO QID 02/09/24 10/19/24 History therapeutic multivitamin 1 tablet PO DAILY 02/09/24 10/06/24 History vibegron 75 mg tablet (Gemtesa) 75 mg PO DAILY 02/09/24 10/06/24 History sennosides 8.6 mg-docusate sodium 4 tab-cap PO Q12H 02/10/24 10/06/24 History 50 mg tablet (Senna-S) latanoprost 0.005 % eye drops 1 drp EACH EYE HS #10 mL 02/18/24 10/06/24 Rx (Xalatan) metoprolol tartrate 25 mg tablet 25 mg PO Q12HR #60 tabs 02/18/24 10/06/24 Rx furosemide 40 mg tablet 40 mg PO BID 03/31/24 10/06/24 History potassium chloride 20 mEq 20 meq PO BID 03/31/24 10/06/24 History tablet,extended release montelukast 10 mg tablet 10 mg PO DAILY #90 tabs 04/06/24 10/06/24 Rx spironolactone 25 mg tablet 25 mg PO BID 04/28/24 10/06/24 History duloxetine 60 mg capsule,delayed 60 mg PO DAILY #90 caps 05/24/24 10/19/24 Rx release ascorbic acid (vitamin C) 500 mg 500 mg PO DAILY 06/10/24 10/06/24 History capsule cranberry fruit 450 mg tablet 900 mg PO DAILY 06/10/24 10/06/24 History (cranberry) lactobacillus combination no.4 15 15,000 mmu cells PO DAILY 06/10/24 10/06/24 History billion cell capsule (Senior Probiotic) loratadine 10 mg tablet 10 mg PO DAILY PRN allergy symptoms 06/10/24 10/06/24 History magnesium chloride 64 mg mg PO DAILY 06/10/24 09/19/24 History (magnesium chloride) tablet red yeast rice extract 55 mg mg PO DAILY 06/10/24 09/19/24 History capsule zinc oxide 20 % topical ointment 1 applic topical DAILY PRN skin 06/10/24 10/06/24 History irritation meloxicam 15 mg tablet 15 mg PO DAILY #90 tabs 08/15/24 10/06/24 Rx quetiapine 100 mg tablet 100 mg PO QHS #90 tabs 08/22/24 10/06/24 Rx amoxicillin 875 mg tablet 875 mg PO Q12H #14 tabs 09/19/24 10/06/24 Rx tirzepatide (weight loss) 2.5 2.5 mg subcut WEEKLY 09/19/24 10/06/24 History mg/0.5 mL subcutaneous pen injector (Zepbound) levofloxacin 750 mg tablet 750 mg PO DAILY #10 tabs 09/20/24 10/06/24 Rx hydrocodone 5 mg-acetaminophen 325 1 tablet PO Q6H PRN pain #20 tabs 10/04/24 10/06/24 Rx mg tablet tirzepatide (weight loss) 7.5 7.5 mg subcut WEEKLY 10/06/24 10/06/24 History mg/0.5 mL subcutaneous pen injector (Zepbound) hydrocortisone 2.5 % topical cream 1 applic topical BID PRN rash #30 10/13/24 Rx grams Patient hx anesthesia problems: none Family hx anesthesia problems: none Results Review: All pre-operative results and documents have been reviewed as part of the pre-operative evaluation. 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 Presence of intrathecal baclofen pump (04/2007) and catheter; 01/2011, 07/2017, 05/2021 History of lumbar fusion (07/2006) T10-L3; revision 02/2009 Family History Family History Father Cerebrovascular accident Depression Emphysema of lung Black lung disease Mother COVID passed from covid Sibling Cancer Other Family history of arthritis Family history of malignant neoplasm Social History Social History (Updated 10/19/24 @ 08:09 by Terry Tipton MD) Social History: Surrogate decision maker: Belen Church, 06/16/24 very confident with medical forms Smoking status: Former smoker Second hand tobacco smoke exposure: No Smoking end date: 11/13/08 Alcohol intake: current Drinks per week: 3 Substance use: former Substance use type: marijuana Other substance usage details: Gummies - for sleep Last use: 2021 Do You Feel Safe in your Home?: Yes Lack of Transportation: No Lack of Food: Never True Current Housing: Decline to Answer Concerned About Future Housing: Decline to Answer Difficulty Paying Gas/Electric Bills: Decline to Answer Difficulty Paying for Meds: Decline to Answer Currently Unemployed: Decline to Answer Education: Associate Degree Difficulty w/ Childcare or Family Care: No Living arrangements: with family Additional living arrangements comments: The patient lives with his in [place]. Occupation/Education: retired Additional occupation/education comments: Retired sales. Gender identity (if verbalized by the patient): Male Sexual Orientation (if Verbalized by the Patient): Straight or Heterosexual Spiritual care concerns: No Agree to blood products: Yes Anes - Eval Final PreProcedure Day of Procedure 10/19/24 08:08 Patient weight: obese Heart: regular rate and rhythm Lungs: clear to auscultation Airway: Mallampati scale class II Neurological: alert and oriented Last oral intake: >/= 8 hours ASA classification: III Emergent: no Anesthetic plan: proceed Anesthesia type and monitoring: general LMA and standard monitoring Results Review: All pre-operative results and documents have been reviewed as part of the pre-operative evaluation. Informed Consent: The patient's anesthetic plan and its attendant risks and benefits were discussed with the patient/family/POA. Questions were solicited and answers provided to the satisfaction of the patient/family/POA.
--- NOTE | 2024-10-19 09:35 | WPDHPUPDATE1 ---
History and Physical Update Update Date/Time: 10/19/24 09:35 History and Physical has been reviewed, including an updated exam of the patient. There are NO changes in the patient's condition. Plan right hydrocelectomy, possible spermatocelectomy, possible orchiopexy Risks, benefits, and alternatives have been discussed and questions answered. Patient agrees to proceed with procedure.
[2024-10-19] MEDS: ceFAZolin 2 GM/D5W 50 ML 2 GM/50 ML BAG IVPB (09:39)
[2024-10-19] MEDS: BUPivacaine HCL 0.5% PF 30 ML VIAL INFILTRATE (09:39)
--- NOTE | 2024-10-19 10:15 | S_PTH ---
PATIENT: Macario Church LOC: [facility] U#:[id number] AGE/SX: 74/M ROOM: RE10/19/[address]: Camila Stovall MD : 1950 BED: DIS: 10/19/2024 SPEC #: [id number] RECD: 10/19/24 12:50 STATUS: GLENN REJonathan #: [id number] JUN: 10/19/24 10:[address]: Camila Stovall DEPT: [facility] Surgical RECD BY: Arabella Verde ENTERED: 10/19/24 12:50 SP TYPE: Surgical OTHR DR: Mary Ellen Poon PA-C Tissues: A - Spermatocele Sac Procedures: Hematoxylin and Eosin Stain Gross and Microscopic Level 3
--- NOTE | 2024-10-19 10:44 | W.PM.PROC2 ---
Procedure Note - Detailed Date of Procedure 10/19/24 Pre-op Diagnosis right hydrocele, scrotal swelling Post-op Diagnosis Same Procedure Performed Right hydrocelectomy Right orchiopexy Surgeon Camila Stovall MD Anesthesia General Findings Right hydrocele, 200cc Description of Procedure Informed consent obtained. Patient to the operating room. He was given preoperative IV antibiotics. He was induced with anesthesia. He was prepped and draped in normal sterile fashion. Local anesthetic was injected to the midline scrotal raphae. We then made a 4cm incision and dissected down into the right hemiscrotum. Large right hydrocele was identified and the tunica vaginalis was carefully from surrounding structures. The tunica vaginalis was opened and there was return of [id number] of straw-colored fluid. Wean then inspected the testicle and epididymis that were rather indurated and irritated from previous infection. There was no palpable mass or lesion. The spermatic cord identified not injured throughout the operation we then excised a portion of the hydrocele sac and it was sent as specimen. We then oversewed the edges with 2-0 Vicryl suture. There was good hemostasis. At this point we inspected the testicle and it did appear to be mobile and a orchiopexy was performed with 3-0 Ethibond suture through the tunica albuginea and dartos layer medially, laterally, inferiorly. The testicle then sat in appropriate position. We then closed the dartos layer with 2-0 Vicryl suture deep dermal layer with 3-0 Vicryl suture and skin with 3-0 chromic running and interrupted sutures. A 16 F Peres catheter was inserted return clear urine. Dressing was placed. Patient taken recovery in stable condition Pathology Yes Complications No immediate complications Disposition PACU
== END 2024-10-19 13:05 | disposition home or self-care (01) ==
PROVIDERS: PCP Physician Assistant Medical; Visit Provider Urology
PROC: (CPT 55040; principal; 2024-10-19 09:00)
DX: N43.3 Hydrocele, unspecified (principal); N50.89 Other specified disorders of the male genital organs; N32.81 Overactive bladder; R39.198 Other difficulties with micturition; N45.3 Epididymo-orchitis; F32.A Depression, unspecified; F41.9 Anxiety disorder, unspecified; I10 Essential (primary) hypertension; N40.0 Benign prostatic hyperplasia without lower urinary tract symptoms; G47.00 Insomnia, unspecified; G89.4 Chronic pain syndrome; N30.20 Other chronic cystitis without hematuria; M48.04 Spinal stenosis, thoracic region; M48.061 Spinal stenosis, lumbar region without neurogenic claudication; M19.90 Unspecified osteoarthritis, unspecified site; F12.90 Cannabis use, unspecified, uncomplicated; E66.9 Obesity, unspecified; Z68.37 Body mass index [BMI] 37.0-37.9, adult; Z79.85 Long-term (current) use of injectable non-insulin antidiabetic drugs; Z79.891 Long term (current) use of opiate analgesic; Z98.890 Other specified postprocedural states; Z98.1 Arthrodesis status; Z87.891 Personal history of nicotine dependence; Z86.79 Personal history of other diseases of the circulatory system; Z80.1 Family history of malignant neoplasm of trachea, bronchus and lung; Z82.49 Family history of ischemic heart disease and other diseases of the circulatory system
CPT/HCPCS: 55040; 54640; 88304; A9270; J0690; J1100; J2003; J2405; J2704; J3010; J7120